=== PATIENT | male | born 1955 | race Caucasian/White ===

== ENCOUNTER 2017-05-26 14:17 | Emergency (ER) | payer OTHER ==
[~2017-05-26] VITALS: Ht 185.4 cm; Wt 88.9 kg
[~2017-05-26 14:17] MED LIST: AMLO10TA4 PO; ATOR10TA PO; HYDR12.58 PO
[2017-05-26 15:01] VITALS: BP 124/71
--- NOTE | 2017-05-26 15:33 | RAD ---
PA and lateral chest radiographs 05/26/2017 Clinical history: Increased rib pain. PA and lateral digital radiographs of the chest were obtained. No previous studies are available for comparison. The cardiac and mediastinal silhouettes are within normal limits in size and configuration. No acute pulmonary infiltrate is seen. No pleural effusion or pneumothorax is noted. Relatively acute-appearing fractures of the right fifth and sixth ribs are seen, laterally. These are not significantly displaced. Degenerative changes are seen involving the thoracic spine. Impression: Relatively acute appearing fractures are seen involving the right fifth and sixth ribs. No additional acute abnormality is seen.
--- NOTE | 2017-05-26 15:35 | PHYS DOC ---
Past Medical History Past Medical History: High Cholesterol, Hypertension Past Surgical History: Cancer Surgery, Other Additional Past Surgical Histo: PARTIAL R NEPHRECTOMY, ESOPHAGUS DILATION Alcohol Use: None Drug Use: None Adult General Chief Complaint Chief Complaint: RIB PAIN HPI HPI Patient is a 61 year old male with history of hypertension high cholesterol who presents today with 7 out of 10 sharp right rib pain that has been going on intermittently for 4 weeks and got worse yesterday. Patient states he has rib fractures. He states he saw his PCP who hasn't on Aleve and cyclobenzaprine. Patient states this medications are not helping. Patient denies any new injuries. Denies any shortness of breath. Review of Systems Review of Systems Constitutional: Denies fever or chills [] Eyes: Denies change in visual acuity, redness, or eye pain [] HENT: Denies nasal congestion or sore throat [] Respiratory: right rib pain Cardiovascular: No additional information not addressed in HPI [] GI: Denies abdominal pain, nausea, vomiting, bloody stools or diarrhea [] : Denies dysuria or hematuria [] Musculoskeletal: Denies back pain or joint pain [] Integument: Denies rash or skin lesions [] Neurologic: Denies headache, focal weakness or sensory changes [] Allergies Allergies Allergies Coded Allergies Type Severity Reaction Last Updated Verified No Known Drug Allergies 06/12/16 No Physical Exam Physical Exam Constitutional: Well developed, well nourished, no acute distress, non-toxic appearance. [] HENT: Normocephalic, atraumatic, bilateral external ears normal, oropharynx moist, no oral exudates, nose normal. [] Eyes: PERRLA, EOMI, conjunctiva normal, no discharge. [] Neck: Normal range of motion, no tenderness, supple, no stridor. [] Cardiovascular:Heart rate regular rhythm, no murmur [] Lungs & Thorax: Bilateral breath sounds clear to auscultation, tenderness on palpation of ribs 9 and 10 mid axillary line on the right side. Abdomen: Bowel sounds normal, soft, no tenderness, no masses, no pulsatile masses. [] Skin: Warm, dry, no erythema, no rash. [] Back: No tenderness, no CVA tenderness. [] Extremities: No tenderness, no cyanosis, no clubbing, ROM intact, no edema. [] Neurologic: Alert and oriented X 3, normal motor function, normal sensory function, no focal deficits noted. [] Psychologic: Affect normal, judgement normal, mood normal. [] Current Patient Data Vital Signs Vital Signs Date Time Temp Pulse Resp B/P (MAP) Pulse Ox O2 Delivery O2 Flow Rate FiO2 05/26/17 15:01 98.7 89 16 97 Room Air 98.7 EKG EKG [] Radiology/Procedures Radiology/Procedures [] Course & Med Decision Making Course & Med Decision Making Pertinent Labs and Imaging studies reviewed. (See chart for details) Patient is in the ED with right rib pain. He has at present diagnoses of right rib fracture 4 weeks ago. Is on Aleve and cyclobenzaprine with no relief. Is requesting for some pain relief. He states will follow-up with his own doctor in the next 1-2 weeks. Is also requesting a note for work for light duty. was provided. Discharged with pain medicines and instructed follow up with this doctor as soon as he can. Dragon Disclaimer Dragon Disclaimer This electronic medical record was generated, in whole or in part, using a voice recognition dictation system. Departure Departure Impression: Primary Impression: Rib pain on right side Disposition: HOME, SELF-CARE Condition: STABLE Referrals: TERE BETANCOURT MD (PCP) Follow-up with your doctor in the next 7 days Patient Instructions: Musculoskeletal Pain Additional Instructions: You were seen for ongoing right rib pain from rib fractures insistent 4 weeks ago. We highly recommend you follow-up with your doctor in the next 1-[address] operate machinery on the medications we sent you home with today. You can apply ice to the affected area. Return to the ED if symptoms worsen. Scripts Diazepam (VALIUM) 10 Mg Tablet 10 MG PO TID, #20 TAB Prov: ROBERT KUHN APRN 05/26/17 Hydrocodone/Apap 5-325 (NORCO 5-325 TABLET) 1 Each Tablet 1-2 TAB PO Q4-6HRS, #20 TAB Prov: ROBERT KUHN APRN 05/26/17 ROBERT KUHN APRN May 26, 2017 15:35
[2017-05-26] MEDS ORDERED: HYDR-971 PO (15:45)
[2017-05-26] MEDS ORDERED: VALIUM10 MG PO (15:45)
== END 2017-05-26 16:02 | disposition home or self-care (01) ==
LOC: ER 14:17
DX: R07.81 Pleurodynia (principal); I10 Essential (primary) hypertension; E78.00 Pure hypercholesterolemia, unspecified
CPT/HCPCS: 71020; 99284-25

== ENCOUNTER → 2020-05-18 | Outpatient (CLI) | payer MEDICARE, OTHER ==
[2017-09-08 11:00] VITALS: BP 115/71
[~2020-05-18] MED LIST changes: +ACYC800T PO; +AMLO1CAP13 PO; +ASPI325T8 PO; +DEXA4TAB PO; +FLUC100T4 PO; +HYDR-3164 PO; +IBUP-1007 PO; +PROC5TAB14 PO; +VALA10005 PO; +VALIUM10 MG PO
--- NOTE | 2020-05-18 15:11 | KCIC ---
EXAM: 3 views left knee DATE: 05/18/2020 12:00 AM INDICATION: Reason: LT ANTERIOR KNEE PAIN APPRX 1 MONTH, NO INJURY / Spl. Instructions: / History: COMPARISON: No Prior FINDINGS: Chondrocalcinosis. Joint spaces are preserved without significant degenerative/proliferative change. No evidence of acute fracture or dislocation. No joint effusion. IMPRESSION: 1. Chondrocalcinosis without significant degenerative/atrophic change. Electronically signed by: Praful Meza MD (05/18/2020 3:08 PM) CHRISTINE
== END | disposition home or self-care (01) ==
LOC: KCIC 12:42
PROVIDERS: ATTEND Family Medicine
DX: M11.262 Other chondrocalcinosis, left knee (principal)
CPT/HCPCS: 73562

== ENCOUNTER → 2020-10-26 | Outpatient (CLI) | payer MEDICARE, OTHER ==
[2017-09-08 11:00] VITALS: BP 115/71
--- NOTE | 2020-10-26 12:53 | RAD ---
EXAMINATION: CT HEAD/BRAIN WO (CT HEAD WITHOUT IV CONTRAST) CLINICAL HISTORY: HEADACHE TECHNIQUE: Serial axial images without IV contrast were obtained from the vertex to the foramen magnu m. CT Dose Reduction Employed: One or more of the following individualized dose reduction techniques wer e utilized for this examination: 1. Automated exposure control 2. Adjustment of the mA and/or kV ac cording to patient size 3. Use of iterative reconstruction technique. COMPARISON: None FINDINGS: Acute Change: No evidence of an acute infarct or other acute parenchymal process. Hemorrhage: No evidence of acute intracranial hemorrhage. Mass Lesion/Mass Effect: No evidence of intracranial mass or extraaxial fluid collection. No signific ant mass effect. Chronic Change: None apparent. Atherosclerotic calcification of the bilateral carotid siphons. Parenchyma: No significant volume loss. Parenchyma otherwise within normal limits for age. Ventricles: Ventricles within normal limits for age. Paranasal Sinuses and Skull Base: Mild mucoperiosteal thickening in the right maxillary sinus. Visual ized skull base and soft tissues unremarkable. IMPRESSION: No evidence of acute intracranial abnormality. Electronically signed by: Gerald Martin DO (10/26/2020 12:51 PM) [id number]
== END ==
LOC: CT 10:07
PROVIDERS: ATTEND Family Medicine
DX: R51.9 Headache, unspecified (principal)
CPT/HCPCS: 70450

== ENCOUNTER 2021-01-10 15:10 | Observation (INO) | payer MEDICARE, OTHER ==
[~2021-01-10] VITALS: Ht 185.4 cm; Wt 61.4 kg
[~2021-01-10 15:10] MED LIST changes: -ACYC800T PO; +ACYC800T88 PO
[2021-01-10 16:38] LABS: BASO # 0.1 x10^3/uL (0.0-0.2); BASO % 1 % (0-3); EOS # 0.3 x10^3/uL (0.0-0.7); EOS % 6 % (0-3); HEMATOCRIT 42.9 % (39.0-53.0); HEMOGLOBIN 14.5 g/dL (13.0-17.5); LYMPH # 0.4 x10^3/uL (1.0-4.8); LYMPH % 9 % (24-48); MEAN CORPUSCULAR HEMOGLOBIN 33 pg (25-35); MEAN CORPUSCULAR HGB CONC 34 g/dL (31-37); MEAN CORPUSCULAR VOLUME 98 fL (79-100); MONO # 0.6 x10^3/uL (0.0-1.1); MONO % 13 % (0-9); NEUT # 3.2 x10^3/uL (1.8-7.7); NEUT % 71 % (31-73); PLATELET COUNT 161 x10^3/uL (140-400); RED BLOOD COUNT 4.39 x10^6/uL (4.30-5.70); RED CELL DISTRIBUTION WIDTH 15.1 % (11.5-14.5); WHITE BLOOD COUNT 4.5 x10^3/uL (4.0-11.0)
[2021-01-10 16:45] LABS: CALCIUM 8.8 mg/dL (8.5-10.1); CREATININE 1.3 mg/dL (0.7-1.3)
[2021-01-10 16:46] LABS: GFR 55.1; POTASSIUM 3.8 mmol/L (3.5-5.1)
[2021-01-10 16:51] LABS: ALBUMIN 3.5 g/dL (3.4-5.0); ALBUMIN/GLOBULIN RATIO 1.2 (1.0-1.7); TOTAL BILIRUBIN 0.7 mg/dL (0.2-1.0); TOTAL PROTEIN 6.5 g/dL (6.4-8.2)
--- NOTE | 2021-01-10 17:32 | RAD ---
ACUTE ABDOMEN SERIES History: Upper abdominal pain, now resolved. Comparison: AP chest May 26, 2017. CT abdomen and pelvis with contrast September 08, 2017. Findings: Frontal chest and supine and upright views of the abdomen. Cardiomediastinal silhouette is normal. There is no pleural effusion or pneumothorax. Minimal atelec tasis or scarring left costophrenic angle. The lungs are otherwise clear. No pneumoperitoneum is identified. No dilated air-filled loops of bowel are seen. There is scattered air and stool in the colon. Bowel gas pattern is nonobstructive. There is a 2.8 cm oval hyperdensity containing a bubble of air in the right upper abdomen, nonspecifi c. Degenerative endplate spurring of the lumbar spine. IMPRESSION: 1. No acute cardiopulmonary process. 2. Nonobstructive bowel gas pattern. Electronically signed by: Domenic Renee MD (01/10/2021 5:29 PM) [facility]
--- NOTE | 2021-01-10 18:12 | PDOC1 ---
History and Physical Date of Admission Date of Admission DATE: 01/10/21 TIME: 18:07 Identification/Chief Complaint Chief Complaint Epigastric abdominal pain Source Source: Patient History of Present Illness History of Present Illness Mr Weeks is a 65yo male [employer] with PMHx renal cell ca, multiple myeloma (s/p autologous stem cell transplant 06/2017, on revlimid), peripheral neuropathy who presents to the ED complaining of epigastric abdominal pain and chest pain. He had pickles cheese as well as 2 burritos for lunch and experienced intense epigastric abdominal pain that radiated up into his chest and doubled him over, he also had associated shortness of breath. He waited 30 minutes when it did finally subside. He drove himself to the emergency department for further evaluation. Acute abdomen series with no obstruction normal bowel gas pattern. Previously he is experienced similar symptoms and had food impaction diagnosed and treated in 2013 with an EGD and at the time he also has esophageal dilation. The time he was seen at [facility]. Historically he has renal cell cancer diagnosed in 2003 and treated with partial nephrectomy at [facility]. He was diagnosed in 2016 with multiple myeloma and was treated with autologous stem cell transplant by Dr. Priest and has been maintained on Revlimid. Plans on scheduling a colonoscopy as he is due for 5-year follow-up this year has appointment 02/16/2021. He also plans to travel to [place] for a motorcycle rally next month. Otherwise no recent travel or sick contacts. Up-to-date on vaccinations including COVID-19. EKG with sinus rhythm multiple PVCs and some left axis deviation. Normal ST segments and T waves. Labs WBC 4.5, Hb 14.5, platelets 161, NA 146, K3.8, BUN 17, CR 1.3, glucose 128, magnesium 2, AST 139, ALT 128 alk phos 115 lipase 126, troponin 0. Admitted for further observation Past Medical History Cardiovascular: No pertinent hx Pulmonary: No pertinent hx GI: Diverticulosis Heme/Onc: Other Hepatobiliary: No pertinent hx Renal/: Renal Ca. Past Surgical History Past Surgical History Vasectomy, hernia repair, right partial nephrectomy. Past Surgical History: Other Family History Family History: Cancer Social History Smoke: No ALCOHOL: rare Drugs: None, Other Current Medications Current Medications Active Scripts Active Derry 5-325 Tablet (Acetaminophen/Hydrocodone Bitart) 1 Each Tablet 1-2 Tab PO Q4-6HRS Reported Ibuprofen 600 Mg Tablet 600 Mg PO PRN Q6HRS PRN Fluconazole 100 Mg Tablet 100 Tab PO DAILY x 8 days Acyclovir 800 Mg Tablet 1 Tab PO BID Prochlorperazine Maleate 10 Mg Tablet 1 Tab PO Q6HRS PRN Amlodipine-Benazepril 10-20 Mg (Amlodipine Besylate/Benazepril) 1 Each Capsule 1 Cap PO DAILY Dexamethasone 4 Mg Tablet 4 Tab PO WEEKLY 10 4mg tablets once a week Lipitor (Atorvastatin Calcium) 10 Mg Tablet 10 Mg PO DAILY Hydrochlorothiazide Tablet (Hydrochlorothiazide) 12.5 Mg Tablet 1 Tab PO DAILY Norvasc (Amlodipine Besylate) 10 Mg Tablet 10 Mg PO DAILY Allergies Allergies: Coded Allergies: No Known Drug Allergies (Unverified , 06/12/16) ROS General: No: Chills, Night Sweats, Fatigue, Malaise, Appetite, Other PSYCHOLOGICAL ROS: No: Anxiety, Behavioral Disorder, Concentration difficultie, Decreased libido, Depression, Disorientation, Hallucinations, Hostility, Irritablity, Memory difficulties, Mood Swings, Obsessive thoughts, Physical abuse, Sexual abuse, Sleep disturbances, Suicidal ideation, Other Eyes: No Blurry vision, No Decreased vision, No Double vision, No Dry eyes, No Excessive tearing, No Eye Pain, No Itchy Eyes, No Loss of vision, No Photophobia, No Scotomata, No Uses contacts, No Uses glasses, No Other HEENT: No: Heacaches, Visual Changes, Hearing change, Nasal congestion, Nasal discharge, Oral lesions, Sinus pain, Sore Throat, Epistaxis, Sneezing, Snoring, Tinnitus, Vertigo, Vocal changes, Other ALLERGY AND IMMUNOLOGY: No: Hives, Insect Bite Sensitivity, Itchy/Watery Eyes, Nasal Congestion, Post Nasal Drip, Seasonal Allergies, Other Hematological and Lymphatic: No: Bleeding Problems, Blood Clots, Blood Transfusions, Brusing, Night Sweats, Pallor, Swollen Lymph Nodes, Other ENDOCRINE: No: Breast Changes, Galactorrhea, Hair Pattern Changes, Hot Flashes, Malaise/lethargy, Mood Swings, Palpitations, Polydipsia/polyuria, Skin Changes, Temperature Intolerance, Unexpected Weight Changes, Other Physical Exam General: Alert, Oriented X3, Cooperative, No acute distress HEENT: Atraumatic, PERRLA, EOMI, Mucous membr. moist/pink Lungs: Clear to auscultation, Normal air movement Heart: S1S2, RRR, no thrills, no rubs, no gallops, no murmurs Abdomen: Normal bowel sounds, Soft, No tenderness, No hepatosplenomegaly, No masses Rectal Exam: not examined Extremities: No clubbing, No cyanosis, No edema, Normal pulses, No tenderness/swelling Skin: No rashes, No breakdown, No significant lesion Neuro: Normal gait, Normal speech, Strength at 5/5 X4 ext, Normal tone, Sensation intact, Cranial nerves 3-12 NL, Reflexes 2+ Psych/Mental Status: Mental status NL, Mood NL Vitals Vitals Vital Signs Date Time Temp Pulse Resp B/P (MAP) Pulse Ox O2 Delivery O2 Flow Rate FiO2 01/10/21 15:24 98.0 79 16 147/83 (104) 97 Room Air 98.0 Labs Labs Laboratory Tests Test 01/10/21 16:05 White Blood Count 4.5 x10^3/uL (4.0-11.0) Red Blood Count 4.39 x10^6/uL (4.30-5.70) Hemoglobin 14.5 g/dL (13.0-17.5) Hematocrit 42.9 % (39.0-53.0) Mean Corpuscular Volume 98 fL (79-100) Mean Corpuscular Hemoglobin 33 pg (25-35) Mean Corpuscular Hemoglobin Concent 34 g/dL (31-37) Red Cell Distribution Width 15.1 % (11.5-14.5) Platelet Count 161 x10^3/uL (140-400) Neutrophils (%) (Auto) 71 % (31-73) Lymphocytes (%) (Auto) 9 % (24-48) Monocytes (%) (Auto) 13 % (0-9) Eosinophils (%) (Auto) 6 % (0-3) Basophils (%) (Auto) 1 % (0-3) Neutrophils # (Auto) 3.2 x10^3/uL (1.8-7.7) Lymphocytes # (Auto) 0.4 x10^3/uL (1.0-4.8) Monocytes # (Auto) 0.6 x10^3/uL (0.0-1.1) Eosinophils # (Auto) 0.3 x10^3/uL (0.0-0.7) Basophils # (Auto) 0.1 x10^3/uL (0.0-0.2) Sodium Level 146 mmol/L (136-145) Potassium Level 3.8 mmol/L (3.5-5.1) Chloride Level 109 mmol/L (98-107) Carbon Dioxide Level 25 mmol/L (21-32) Anion Gap 12 (6-14) Blood Urea Nitrogen 17 mg/dL (8-26) Creatinine 1.3 mg/dL (0.7-1.3) Estimated GFR (Cockcroft-Gault) 55.1 BUN/Creatinine Ratio 13 (6-20) Glucose Level 128 mg/dL (70-99) Calcium Level 8.8 mg/dL (8.5-10.1) Magnesium Level 2.0 mg/dL (1.8-2.4) Total Bilirubin 0.7 mg/dL (0.2-1.0) Aspartate Amino Transf (AST/SGOT) 139 U/L (15-37) Alanine Aminotransferase (ALT/SGPT) 128 U/L (16-63) Alkaline Phosphatase 115 U/L (46-116) Creatine Kinase 86 U/L (39-308) Creatine Kinase MB (Mass) 1.5 ng/mL (0.0-3.6) Creatine Kinase MB Relative Index 1.7 % (0-4) Troponin I Quantitative < 0.017 ng/mL (0.000-0.055) Total Protein 6.5 g/dL (6.4-8.2) Albumin 3.5 g/dL (3.4-5.0) Albumin/Globulin Ratio 1.2 (1.0-1.7) Lipase 126 U/L (73-393) Laboratory Tests Test 01/10/21 16:05 White Blood Count 4.5 x10^3/uL (4.0-11.0) Red Blood Count 4.39 x10^6/uL (4.30-5.70) Hemoglobin 14.5 g/dL (13.0-17.5) Hematocrit 42.9 % (39.0-53.0) Mean Corpuscular Volume 98 fL (79-100) Mean Corpuscular Hemoglobin 33 pg (25-35) Mean Corpuscular Hemoglobin Concent 34 g/dL (31-37) Red Cell Distribution Width 15.1 % (11.5-14.5) Platelet Count 161 x10^3/uL (140-400) Neutrophils (%) (Auto) 71 % (31-73) Lymphocytes (%) (Auto) 9 % (24-48) Monocytes (%) (Auto) 13 % (0-9) Eosinophils (%) (Auto) 6 % (0-3) Basophils (%) (Auto) 1 % (0-3) Neutrophils # (Auto) 3.2 x10^3/uL (1.8-7.7) Lymphocytes # (Auto) 0.4 x10^3/uL (1.0-4.8) Monocytes # (Auto) 0.6 x10^3/uL (0.0-1.1) Eosinophils # (Auto) 0.3 x10^3/uL (0.0-0.7) Basophils # (Auto) 0.1 x10^3/uL (0.0-0.2) Sodium Level 146 mmol/L (136-145) Potassium Level 3.8 mmol/L (3.5-5.1) Chloride Level 109 mmol/L (98-107) Carbon Dioxide Level 25 mmol/L (21-32) Anion Gap 12 (6-14) Blood Urea Nitrogen 17 mg/dL (8-26) Creatinine 1.3 mg/dL (0.7-1.3) Estimated GFR (Cockcroft-Gault) 55.1 BUN/Creatinine Ratio 13 (6-20) Glucose Level 128 mg/dL (70-99) Calcium Level 8.8 mg/dL (8.5-10.1) Magnesium Level 2.0 mg/dL (1.8-2.4) Total Bilirubin 0.7 mg/dL (0.2-1.0) Aspartate Amino Transf (AST/SGOT) 139 U/L (15-37) Alanine Aminotransferase (ALT/SGPT) 128 U/L (16-63) Alkaline Phosphatase 115 U/L (46-116) Creatine Kinase 86 U/L (39-308) Creatine Kinase MB (Mass) 1.5 ng/mL (0.0-3.6) Creatine Kinase MB Relative Index 1.7 % (0-4) Troponin I Quantitative < 0.017 ng/mL (0.000-0.055) Total Protein 6.5 g/dL (6.4-8.2) Albumin 3.5 g/dL (3.4-5.0) Albumin/Globulin Ratio 1.2 (1.0-1.7) Lipase 126 U/L (73-393) Images Images Acute abdomen radiograph series: Cardiomediastinal silhouette is normal. There is no pleural effusion or pneumothorax. Minimal atelectasis or scarring left costophrenic angle. The lungs are otherwise clear. No pneumoperitoneum is identified. No dilated air-filled loops of bowel are seen. There is scattered air and stool in the colon. Bowel gas pattern is nonobstructive. There is a 2.8 cm oval hyperdensity containing a bubble of air in the right upper abdomen, nonspecific. Degenerative endplate spurring of the lumbar spine. IMPRESSION: 1. No acute cardiopulmonary process. 2. Nonobstructive bowel gas pattern. VTE Prophylaxis Ordered VTE Prophylaxis Devices: Yes VTE Pharmacological Prophylaxi: Yes Assessment/Plan Assessment/Plan A/P: Chest pain - atypical, likely epigastric pain from esophageal spasm Transaminitis - likely due to revlimid therapy. Will monitor. Has excellent outpatient hematology/oncology f/u Epigastric pain - likely esophageal spasm vs stricture vs PUD. PPI, prn zofran Multiple myeloma - s/p autologous BMT, on revlimid, stable H/o renal cell ca - s/p partial right nephrectomy, in remission HTN - on amlodipine at home, BP is elevated currently, prn hydralazine ordered Abnormal EKG - multiple PVCs. previously noted. Not on BB or non-dihydropyridine BB. Will consult cardiology for further recs. No cardiac history ERIC - likely vasomotor nephropathy due to poor PO intake given above. Will hydrate, monitor renal function FEN - Cardiac diet, npo after midnight PPX -lovenox FULL CODE Dispo - observation for above Justifications for Admission Other Justification JUSTEN FELICIANO MD January 10, 2021 18:12
[2021-01-10] MEDS ORDERED: PANTOPRAZOLE 40 MG TABLET.DR. PO ONE (18:15)
[2021-01-10] MEDS ORDERED: ONDANSETRON PF 4 MG/2 ML VIAL. IVP PRN (18:15)
[2021-01-10] MEDS ORDERED: NITROGLYCERIN SUBLINGUAL 0.4 MG BOTTLE OF 25. SL PRN (18:45)
[2021-01-10] MEDS ORDERED: ACETAMINOPHEN 325 MG TABLET. PO PRN (18:45)
[2021-01-10] MEDS ORDERED: ZOLPIDEM 5 MG TABLET. PO PRN (18:45)
[2021-01-10] MEDS ORDERED: hydrALAZINE 20 MG/ML VIAL. IVP PRN (18:45)
[2021-01-10 20:57] LABS: BILIRUBIN,URINE NEGATIVE (NEG); CLARITY,URINE CLEAR; COLOR,URINE YELLOW; NITRITE,URINE NEGATIVE (NEG); PROTEIN,URINE NEGATIVE (NEG-TRACE); UROBILINOGEN,URINE 0.2 mg/dL (0.2 mg/dL)
[2021-01-10] MEDS ORDERED: ENOXAPARIN 40 MG/0.4 ML SYRINGE. SQ SCH (21:00)
[2021-01-10 21:04] LABS: BACTERIA,URINE 0 /HPF (0-FEW); RBC,URINE RARE /HPF (0-2); WBC,URINE RARE /HPF (0-4)
[2021-01-10] MEDS ORDERED: LENA5CAP PO (21:04)
[2021-01-10] MEDS ORDERED: DICL75TA PO (21:04)
[2021-01-10 21:09] VITALS: BP 178/91
[2021-01-10 22:27] VITALS: BP 170/90
--- NOTE | 2021-01-10 23:30 | ED.ADGEN ---
Past Medical History Past Medical History: High Cholesterol, Hypertension Additional Past Medical Histor: MULTIPLE MYELOMA, KIDNEY CA, peripheral neuropathy, metatarsalgia Past Surgical History: Cancer Surgery, Other Additional Past Surgical Histo: PARTIAL R NEPHRECTOMY, ESOPHAGUS DILATION Smoking Status: Never Smoker Alcohol Use: None Drug Use: None General Adult EDM: Chief Complaint: ABDOMINAL PAIN HPI: HPI: Patient is a pleasant 65 year old male who presents emergency department with complaints of a sudden onset of upper abdominal pain at approximately 1500 this afternoon. Patient states the pain was so severe that he took his breath away and caused him to double over. Patient states he was watching TV when the episode began. He had eaten lunch at noon. Patient states he ate burritos, pickles, and cheese. He reports concerned that maybe the burritos got stuck in his abdomen. Patient denies any flatulence or belching. He states that the pain lasted for short period of time and then went away. He denies any radiation of the pain to his back. Patient also denies any chest pain, palpitations, dizziness, nausea, vomiting, diarrhea, shortness of breath, wheezing, fever, headache, or syncope. He currently denies any pain. Patient states his last bowel movement was today and it was normal. Review of Systems: Review of Systems: Complete ROS is negative unless otherwise noted in HPI. Current Medications: Current Medications Medications (Trade) Dose Ordered Sig/Toña Start Time Stop Time Status Last Admin Dose Admin Ondansetron HCl (Zofran) 4 mg PRN Q4HRS PRN 01/10/21 18:15 Pantoprazole Sodium (Protonix) 40 mg 1X ONCE 01/10/21 18:15 01/10/21 18:18 DC 01/10/21 18:39 40 MG Allergies: Allergies: Allergies Coded Allergies Type Severity Reaction Last Updated Verified No Known Drug Allergies 06/12/16 No Physical Exam: PE: See Above Constitutional: Well developed, well nourished, no acute distress, non-toxic appearance. [] HENT: Normocephalic, atraumatic, bilateral external ears normal, nose normal. [] Eyes: PERRLA, EOMI, conjunctiva normal, no discharge. [] Neck: Normal range of motion, no stridor. [] Cardiovascular:Heart rate regular rhythm, no murmur Lungs & Thorax: Respirations even and unlabored, no retractions, no respiratory distress, lungs CTA Abdomen: soft, no tenderness no palpable mass, no pulsatile mass, no rebound tenderness, no guarding Skin: Warm, dry, no erythema, no rash. [] Extremities: No cyanosis, ROM intact, no edema. [] Neurologic: Alert and oriented X 3, normal motor, normal sensory, no focal deficits noted. [] Psychologic: Affect normal, judgement normal, mood normal. [] Current Patient Data: Labs: Laboratory Tests Test 01/10/21 16:05 White Blood Count 4.5 x10^3/uL (4.0-11.0) Red Blood Count 4.39 x10^6/uL (4.30-5.70) Hemoglobin 14.5 g/dL (13.0-17.5) Hematocrit 42.9 % (39.0-53.0) Mean Corpuscular Volume 98 fL (79-100) Mean Corpuscular Hemoglobin 33 pg (25-35) Mean Corpuscular Hemoglobin Concent 34 g/dL (31-37) Red Cell Distribution Width 15.1 % (11.5-14.5) H Platelet Count 161 x10^3/uL (140-400) Neutrophils (%) (Auto) 71 % (31-73) Lymphocytes (%) (Auto) 9 % (24-48) L Monocytes (%) (Auto) 13 % (0-9) H Eosinophils (%) (Auto) 6 % (0-3) H Basophils (%) (Auto) 1 % (0-3) Neutrophils # (Auto) 3.2 x10^3/uL (1.8-7.7) Lymphocytes # (Auto) 0.4 x10^3/uL (1.0-4.8) L Monocytes # (Auto) 0.6 x10^3/uL (0.0-1.1) Eosinophils # (Auto) 0.3 x10^3/uL (0.0-0.7) Basophils # (Auto) 0.1 x10^3/uL (0.0-0.2) Sodium Level 146 mmol/L (136-145) H Potassium Level 3.8 mmol/L (3.5-5.1) Chloride Level 109 mmol/L (98-107) H Carbon Dioxide Level 25 mmol/L (21-32) Anion Gap 12 (6-14) Blood Urea Nitrogen 17 mg/dL (8-26) Creatinine 1.3 mg/dL (0.7-1.3) Estimated GFR (Cockcroft-Gault) 55.1 BUN/Creatinine Ratio 13 (6-20) Glucose Level 128 mg/dL (70-99) H Calcium Level 8.8 mg/dL (8.5-10.1) Magnesium Level 2.0 mg/dL (1.8-2.4) Total Bilirubin 0.7 mg/dL (0.2-1.0) Aspartate Amino Transferase (AST) 139 U/L (15-37) H Alanine Aminotransferase (ALT) 128 U/L (16-63) H Alkaline Phosphatase 115 U/L (46-116) Creatine Kinase 86 U/L (39-308) Creatine Kinase MB (Mass) 1.5 ng/mL (0.0-3.6) Creatine Kinase MB Relative Index 1.7 % (0-4) Troponin I Quantitative < 0.017 ng/mL (0.000-0.055) Total Protein 6.5 g/dL (6.4-8.2) Albumin 3.5 g/dL (3.4-5.0) Albumin/Globulin Ratio 1.2 (1.0-1.7) Lipase 126 U/L (73-393) Laboratory Tests 01/10/21 16:05 Laboratory Tests 01/10/21 16:05 Vital Signs: Vital Signs Date Time Temp Pulse Resp B/P (MAP) Pulse Ox O2 Delivery O2 Flow Rate FiO2 01/10/21 18:23 64 17 173/90 (117) 95 Room Air 01/10/21 15:24 98.0 98.0 EKG: EK-sinus rhythm with PVCs and leftward axis, rate 70, no STEMI, read by Dr. Lewis [] Heart Score: C/O Chest Pain: No Risk Factors: Risk Factors: DM, Current or recent (<one month) smoker, HTN, HLP, family history of CAD, obesity. Risk Scores: Score 0 - 3: 2.5% MACE over next 6 weeks - Discharge Home Score 4 - 6: 20.3% MACE over next 6 weeks - Admit for Clinical Observation Score 7 - 10: 72.7% MACE over next 6 weeks - Early Invasive Strategies Radiology/Procedures: Radiology/Procedures: PROCEDURE: ACUTE ABDOMEN SERIES ACUTE ABDOMEN SERIES History: Upper abdominal pain, now resolved. Comparison: AP chest May 26, 2017. CT abdomen and pelvis with contrast September 08, 2017. Findings: Frontal chest and supine and upright views of the abdomen. Cardiomediastinal silhouette is normal. There is no pleural effusion or pneumothorax. Minimal atelectasis or scarring left costophrenic angle. The lungs are otherwise clear. No pneumoperitoneum is identified. No dilated air-filled loops of bowel are seen. There is scattered air and stool in the colon. Bowel gas pattern is nonobstructive. There is a 2.8 cm oval hyperdensity containing a bubble of air in the right upper abdomen, nonspecific. Degenerative endplate spurring of the lumbar spine. IMPRESSION: 1. No acute cardiopulmonary process. 2. Nonobstructive bowel gas pattern. Electronically signed by: Domenic Renee MD (01/10/2021 5:29 PM) [facility][] Course & Med Decision Making: Course & Med Decision Making Pertinent Labs and Imaging studies reviewed. (See chart for details) 1645-spoke with Dr. Silva who is the admitting physician, and care was assumed following discussion of patient. Will admit patient for epigastric pain and abnormal EKG as an observation status, will initiate chest pain protocols Patient's vital signs stable. Patient remains afebrile, appears nontoxic, respirations even and unlabored. Patient will be admitted to the CVC floor. Patient's case and plan of care also discussed with Dr. Lewis [] Brittney Disclaimer: Brittney Disclaimer: This electronic medical record was generated, in whole or in part, using a voice recognition dictation system. Departure Departure Impression: Primary Impression: Abnormal EKG Additional Impression: Epigastric pain Disposition: ADMITTED INPATIENT Admitting Physician: RAQUEL (Shira) Condition: STABLE Problem Qualifiers DALIA HARO CHAPLAIN RESIDENT January 10, 2021 23:30
[2021-01-11 02:55] VITALS: BP 146/76
[2021-01-11 03:25] LABS: ALBUMIN 3.7 g/dL (3.4-5.0); ALBUMIN/GLOBULIN RATIO 1.4 (1.0-1.7); CALCIUM 8.8 mg/dL (8.5-10.1); CREATININE 1.1 mg/dL (0.7-1.3); GFR 66.8; POTASSIUM 3.5 mmol/L (3.5-5.1); TOTAL BILIRUBIN 1.3 mg/dL (0.2-1.0); TOTAL PROTEIN 6.3 g/dL (6.4-8.2)
[2021-01-11 07:00] VITALS: BP 163/92
[2021-01-11] MEDS ORDERED: ASPIRIN 325 MG TABLET PO SCH (08:00)
--- NOTE | 2021-01-11 08:40 | EKG ---
[facility] [address] [place] [address] Test Date: 2021-01-10 Test Time: 16:53:32 Pat Name: AVILA HENNESSY Department: Room: Gender: Prevention Specialist: : 1955 Requested By: DALIA HARO Order Number: [id number] Reading MD: Measurements Intervals [place] Rate: 70 P: 41 NE: 184 QRS: -23 QRSD: 100 T: 56 QT: 404 QTc: 439 Interpretive Statements SINUS RHYTHM COMPLEX(ES) WITH ABERRANT INTRAVENTRICULAR CONDUCTION VENTRICULAR PREMATURE COMPLEX(ES) LEFTWARD AXIS ABNORMAL ECG RI6.01 No previous ECG available for comparison
[2021-01-11] MEDS ORDERED: amLODIPine BESYLATE 10 MG TABLET PO SCH (09:00)
[2021-01-11] MEDS ORDERED: ATORVASTATIN CALCIUM 10 MG TABLET. PO SCH (09:00)
--- NOTE | 2021-01-11 09:15 | PDOC2 ---
GI CONSULT Date of Service: DATE: 01/11/21 TIME: 09:15 Reason For Consult: epigastric pain h/o esophageal dilation HPI: HPI: 65 y/o who ate a pickle, some cheese, and two burritos yesterday at noon. Developed severe tight epigastric and BUQ pain (no radiation to back or chest) around 3:00 p.m. - resolved by the time he arrived at ER at 3:15. No similar symptoms in the past. Rare reflux - takes Tums occasionally before bed. No dysphagia, n/v, diarrhea, constipation, hematochezia, melena, change in appetite, or weight loss. Food bolus in [place] while on vacation in 2015 - had EGD w/ disimpaction there. Follow-up EGD in 06/[address] Burleson for dysphagia showed mild Schatzki's ring (dilated to 54Fr), normal stomach, and normal duodenum. Reports normal colonoscopies in the past at [facility] - says he's due for screening this summer. Admitted here w/ diverticulitis/abscess in 2018 - followed by surgery - he has no recollection of this. No GB, pancreas, or PUD history. H/o MM s/p stem cell transplant on Revlimid x 2 years - reports h/o mildly elevated LFTs with this (and low WBC). Takes an occasional Aleve for LE pain. He wants to be discharged today. PMH: PMH: RCC, MM, diverticulitis, neuropathy, HTN, HLD partial right nephrectomy, stem cell transplant, RIH repair, vasectomy FH: Family History: No pertinent hx (no GB disease), Cancer (pancreatic - father) Social History: Smoke: No ALCOHOL: rare Drugs: None ROS: GEN: Denies fevers, chills, sweats HEENT: Denies blurred vision, sore throat CV: Denies chest pain RESP: Denies shortness of air, cough GI: Per HPI : Denies hematuria, dysuria ENDO: Denies weight changes NEURO: Denies confusion, dizziness MSK: Denies weakness, joint pain/swelling SKIN: Denies jaundice, pruritus Vitals: Vitals: Vital Signs Date Time Temp Pulse Resp B/P (MAP) Pulse Ox O2 Delivery O2 Flow Rate FiO2 01/11/21 07:00 97.7 53 18 163/92 (115) 96 Room Air 97.7 Labs: Labs: Laboratory Tests Test 01/10/21 16:05 01/10/21 20:50 01/10/21 23:00 01/11/21 03:05 White Blood Count 4.5 x10^3/uL (4.0-11.0) Red Blood Count 4.39 x10^6/uL (4.30-5.70) Hemoglobin 14.5 g/dL (13.0-17.5) Hematocrit 42.9 % (39.0-53.0) Mean Corpuscular Volume 98 fL (79-100) Mean Corpuscular Hemoglobin 33 pg (25-35) Mean Corpuscular Hemoglobin Concent 34 g/dL (31-37) Red Cell Distribution Width 15.1 % (11.5-14.5) Platelet Count 161 x10^3/uL (140-400) Neutrophils (%) (Auto) 71 % (31-73) Lymphocytes (%) (Auto) 9 % (24-48) Monocytes (%) (Auto) 13 % (0-9) Eosinophils (%) (Auto) 6 % (0-3) Basophils (%) (Auto) 1 % (0-3) Neutrophils # (Auto) 3.2 x10^3/uL (1.8-7.7) Lymphocytes # (Auto) 0.4 x10^3/uL (1.0-4.8) Monocytes # (Auto) 0.6 x10^3/uL (0.0-1.1) Eosinophils # (Auto) 0.3 x10^3/uL (0.0-0.7) Basophils # (Auto) 0.1 x10^3/uL (0.0-0.2) Sodium Level 146 mmol/L (136-145) 146 mmol/L (136-145) Potassium Level 3.8 mmol/L (3.5-5.1) 3.5 mmol/L (3.5-5.1) Chloride Level 109 mmol/L (98-107) 109 mmol/L (98-107) Carbon Dioxide Level 25 mmol/L (21-32) 25 mmol/L (21-32) Anion Gap 12 (6-14) 12 (6-14) Blood Urea Nitrogen 17 mg/dL (8-26) 14 mg/dL (8-26) Creatinine 1.3 mg/dL (0.7-1.3) 1.1 mg/dL (0.7-1.3) Estimated GFR (Cockcroft-Gault) 55.1 66.8 BUN/Creatinine Ratio 13 (6-20) 13 (6-20) Glucose Level 128 mg/dL (70-99) 84 mg/dL (70-99) Calcium Level 8.8 mg/dL (8.5-10.1) 8.8 mg/dL (8.5-10.1) Magnesium Level 2.0 mg/dL (1.8-2.4) Total Bilirubin 0.7 mg/dL (0.2-1.0) 1.3 mg/dL (0.2-1.0) Aspartate Amino Transf (AST/SGOT) 139 U/L (15-37) 410 U/L (15-37) Alanine Aminotransferase (ALT/SGPT) 128 U/L (16-63) 534 U/L (16-63) Alkaline Phosphatase 115 U/L (46-116) 139 U/L (46-116) Creatine Kinase 86 U/L (39-308) Creatine Kinase MB (Mass) 1.5 ng/mL (0.0-3.6) Creatine Kinase MB Relative Index 1.7 % (0-4) Troponin I Quantitative < 0.017 ng/mL (0.000-0.055) < 0.017 ng/mL (0.000-0.055) < 0.017 ng/mL (0.000-0.055) Total Protein 6.5 g/dL (6.4-8.2) 6.3 g/dL (6.4-8.2) Albumin 3.5 g/dL (3.4-5.0) 3.7 g/dL (3.4-5.0) Albumin/Globulin Ratio 1.2 (1.0-1.7) 1.4 (1.0-1.7) Lipase 126 U/L (73-393) Urine Collection Type Unknown Urine Color Yellow Urine Clarity Clear Urine pH 6.0 (<5.0-8.0) Urine Specific [place] 1.020 (1.000-1.030) Urine Protein Negative mg/dL (NEG-TRACE) Urine Glucose (UA) Negative mg/dL (NEG) Urine Ketones (Stick) Negative mg/dL (NEG) Urine Blood Negative (NEG) Urine Nitrite Negative (NEG) Urine Bilirubin Negative (NEG) Urine Urobilinogen Dipstick 0.2 mg/dL (0.2 mg/dL) Urine Leukocyte Esterase Negative (NEG) Urine RBC Rare /HPF (0-2) Urine WBC Rare /HPF (0-4) Urine Squamous Epithelial Cells Occ /LPF Urine Bacteria 0 /HPF (0-FEW) Urine Mucus Slight /LPF Test 01/11/21 08:05 Troponin I Quantitative < 0.017 ng/mL (0.000-0.055) Allergies: Coded Allergies: No Known Drug Allergies (Unverified , 06/12/16) Medications: Current Medications Medications (Trade) Dose Ordered Sig/Toña Route PRN Reason Start Time Stop Time Status Last Admin Dose Admin Pantoprazole Sodium (Protonix) 40 mg 1X ONCE PO 01/10/21 18:15 01/10/21 18:18 DC 01/10/21 18:39 Hydralazine HCl (Apresoline Inj) 10 mg PRN Q4HRS PRN IVP HTN 01/10/21 18:45 01/10/21 22:23 Imaging: Imaging: AAS IMPRESSION: 1. No acute cardiopulmonary process. 2. Nonobstructive bowel gas pattern. PE: GEN: NAD HEENT: Atraumatic, PERRL LUNGS: CTAB HEART: RRR ABD: NABS, S/ND/NT EXTREMITY: No edema SKIN: No rashes, no jaundice NEURO/PSYCH: A & O 3 A/P: A/P: Upper abd pain - resolved Rare reflux, h/o food bolus and Schatzki's ring/dilation Elevated LFTs - apparently some h/o this attributed to Revlimid - worse today CRC screen - reportedly due for screening this year, reports normal colonoscopies in the past H/o diverticulitis - admitted here in 2018 - he does not recall H/o RCC and MM -- Cardiology eval pending - abnormal EKG - noted PVCs during exam. Will check Hepatitis panel and US to r/o GB issue. If US unrevealing, okay to advance diet and consider DC per GI w/ outpt follow-up if symptoms recur (and also due to screening colonoscopy). Should monitor LFTs. Would add PPI empirically, particularly since h/o Schatzki's ring/dilation. He is anxious to discharge - has a vacation planned, has work to do at home. Update: Abd US FINDINGS: The liver length measures 17 cm. Mild increased echogenicity identified throughout the liver likely hepatic steatosis. The common bile duct measures 4 mm in transverse dimension. The pancreas, aorta, IVC are not well-visualized. The spleen measures 11.3 cm in length. The right kidney measures 8.8 x 2.6 x 4.0 cm, abnormal appearing right kidney probably prior surgical changes.Cystic structure measuring 2 cm identified in the right kidney likely a cyst. The left kidney measures 12.7 x 4.2 x 5.7 cm. There is cystic structure identified in the left kidney measuring 1.3 cm likely cyst. IMPRESSION: 1. Mild hepatic steatosis. 2. Abnormal-appearing right kidney probably prior surgical changes. However evaluation is limited on this ultrasound. Consider CT urogram if there is suspicion for renal pathology. 3. Bilateral renal cysts. No comment re: gallbladder... will ask for clarification re: this... CLIFF MOMIN January 11, 2021 09:15
--- NOTE | 2021-01-11 10:58 | RAD ---
Examination: Ultrasound abdomen complete HISTORY: History of abdominal pain, elevated liver function tests COMPARISON: None available FINDINGS: The liver length measures 17 cm. Mild increased echogenicity identified throughout the liver likely h epatic steatosis. The common bile duct measures 4 mm in transverse dimension. The pancreas, aorta, IV C are not well-visualized. The spleen measures 11.3 cm in length. The right kidney measures 8.8 x 2.6 x 4.0 cm, abnormal appearing right kidney probably prior surgical changes.Cystic structure measuring 2 cm identified in the right kidney likely a cyst. The left kidney measures 12.7 x 4.2 x 5.7 cm. The re is cystic structure identified in the left kidney measuring 1.3 cm likely cyst. IMPRESSION: 1. Mild hepatic steatosis. 2. Abnormal-appearing right kidney probably prior surgical changes. However evaluation is limited on this ultrasound. Consider CT urogram if there is suspicion for renal pathology. 3. Bilateral renal cysts. Electronically signed by: Benitez Queen MD (01/11/2021 10:55 AM) [id number]
[2021-01-11 11:00] VITALS: BP 180/91
--- NOTE | 2021-01-11 11:15 | PDOC2 ---
FARZANA BAILEY [employer]TERS[employer]ER [employer]LE 01/11/21 1115: CARDIAC CONSULT DATE OF CONSULT Date of Consult DATE: 01/11/21 TIME: 10:35 REASON FOR CONSULT Reason for Consult: Epigastric pain, abnormal EKG REFERRING PHYSICIAN Referring Physician: Skyla SOURCE Source: Chart review, Patient HISTORY OF PRESENT ILLNESS HISTORY OF PRESENT ILLNESS This is a pleasant 65 yo male admitted for complains of abdominal pain. He ate 2 Burritos at lunch then at 3 PM started having severe upper abdominal pain that lasted about 25 minutes. No diarrhea nausea or vomiting. No fever or chills. Consult is for abnormal EKG and he has been having frequent PVCs. He said he has had this since he was young and had slow heart rate. No hx of cardiovascular disease and no hx of HTN or DM. Denies any [place] or exertional chest pain. No falls injury or dizziness or passing out. Denies any palpitations. PAST MEDICAL HISTORY Cardiovascular: HTN, Hyperlipidemia CENTRAL NERVOUS SYSTEM: Periperal neuropathy GI: GERD, Other (esophageal stricture) Heme/Onc: Cancer (multiple myeloma, renal CA) Hepatobiliary: No pertinent hx Psych: No pertinent hx Musculoskeletal: low back pain, Osteoarthritis, Other (chronic foot pain) Rheumatologic: No pertinent hx Infectious disease: No pertinent hx ENT: No pertinent hx Renal/: Other (renal CA) Endocrine: No pertinent hx Dermatology: No pertinent hx PAST SURGICAL HISTORY Past Surgical History: Arthroscopy (bilatreal ulnar compartment release), Hernia Repair, Other (esophageal dilatation, right partial nephrectomy) FAMILY HISTORY Family History noncontributory to CV SOCIAL HISTORY Smoke: No ALCOHOL: rare Drugs: None Lives: Alone CURRENT MEDICATIONS CURRENT MEDICATIONS Current Medications Medications (Trade) Dose Ordered Sig/Toña Route PRN Reason Start Time Stop Time Status Last Admin Dose Admin Pantoprazole Sodium (Protonix) 40 mg 1X ONCE PO 01/10/21 18:15 01/10/21 18:18 DC 01/10/21 18:39 Hydralazine HCl (Apresoline Inj) 10 mg PRN Q4HRS PRN IVP HTN 01/10/21 18:45 01/10/21 22:23 ALLERGIES ALLERGIES: Coded Allergies: No Known Drug Allergies (Unverified , 06/12/16) ROS Review of System 14 point ROS evaluated with pertinent positives noted per HPI PHYSICAL EXAM General: Alert, Oriented X3, Cooperative, No acute distress HEENT: Atraumatic, Mucous membr. moist/pink Lungs: Clear to auscultation, Normal air movement Heart: Regular rate (SR/SB), Normal S1, Normal S2, No murmurs Abdomen: Soft, No tenderness Extremities: No cyanosis, No edema Skin: No breakdown, No significant lesion Neuro: Normal speech, Sensation intact Psych/Mental Status: Mental status NL, Mood NL MUSCULOSKELETAL: Osteoarthritic changes both hands VITALS/I&O VITALS/I&O: Vital Signs Date Time Temp Pulse Resp B/P (MAP) Pulse Ox O2 Delivery O2 Flow Rate FiO2 01/11/21 08:00 Room Air 01/11/21 07:00 97.7 53 18 163/92 (115) 96 97.7 I & O 01/10/21 01/10/21 01/11/21 15:00 23:00 07:00 Intake Total 300 ml 0 ml Output Total 400 ml Balance -100 ml 0 ml LABS Lab: Laboratory Tests Test 01/10/21 16:05 01/10/21 20:50 01/10/21 23:00 01/11/21 03:05 White Blood Count 4.5 x10^3/uL (4.0-11.0) Red Blood Count 4.39 x10^6/uL (4.30-5.70) Hemoglobin 14.5 g/dL (13.0-17.5) Hematocrit 42.9 % (39.0-53.0) Mean Corpuscular Volume 98 fL (79-100) Mean Corpuscular Hemoglobin 33 pg (25-35) Mean Corpuscular Hemoglobin Concent 34 g/dL (31-37) Red Cell Distribution Width 15.1 % (11.5-14.5) H Platelet Count 161 x10^3/uL (140-400) Neutrophils (%) (Auto) 71 % (31-73) Lymphocytes (%) (Auto) 9 % (24-48) L Monocytes (%) (Auto) 13 % (0-9) H Eosinophils (%) (Auto) 6 % (0-3) H Basophils (%) (Auto) 1 % (0-3) Neutrophils # (Auto) 3.2 x10^3/uL (1.8-7.7) Lymphocytes # (Auto) 0.4 x10^3/uL (1.0-4.8) L Monocytes # (Auto) 0.6 x10^3/uL (0.0-1.1) Eosinophils # (Auto) 0.3 x10^3/uL (0.0-0.7) Basophils # (Auto) 0.1 x10^3/uL (0.0-0.2) Sodium Level 146 mmol/L (136-145) H 146 mmol/L (136-145) H Potassium Level 3.8 mmol/L (3.5-5.1) 3.5 mmol/L (3.5-5.1) Chloride Level 109 mmol/L (98-107) H 109 mmol/L (98-107) H Carbon Dioxide Level 25 mmol/L (21-32) 25 mmol/L (21-32) Anion Gap 12 (6-14) 12 (6-14) Blood Urea Nitrogen 17 mg/dL (8-26) 14 mg/dL (8-26) Creatinine 1.3 mg/dL (0.7-1.3) 1.1 mg/dL (0.7-1.3) Estimated GFR (Cockcroft-Gault) 55.1 66.8 BUN/Creatinine Ratio 13 (6-20) 13 (6-20) Glucose Level 128 mg/dL (70-99) H 84 mg/dL (70-99) Calcium Level 8.8 mg/dL (8.5-10.1) 8.8 mg/dL (8.5-10.1) Magnesium Level 2.0 mg/dL (1.8-2.4) Total Bilirubin 0.7 mg/dL (0.2-1.0) 1.3 mg/dL (0.2-1.0) H Aspartate Amino Transferase (AST) 139 U/L (15-37) H 410 U/L (15-37) H Alanine Aminotransferase (ALT) 128 U/L (16-63) H 534 U/L (16-63) H Alkaline Phosphatase 115 U/L (46-116) 139 U/L (46-116) H Creatine Kinase 86 U/L (39-308) Creatine Kinase MB (Mass) 1.5 ng/mL (0.0-3.6) Creatine Kinase MB Relative Index 1.7 % (0-4) Troponin I Quantitative < 0.017 ng/mL (0.000-0.055) < 0.017 ng/mL (0.000-0.055) < 0.017 ng/mL (0.000-0.055) Total Protein 6.5 g/dL (6.4-8.2) 6.3 g/dL (6.4-8.2) L Albumin 3.5 g/dL (3.4-5.0) 3.7 g/dL (3.4-5.0) Albumin/Globulin Ratio 1.2 (1.0-1.7) 1.4 (1.0-1.7) Lipase 126 U/L (73-393) Urine Collection Type Unknown Urine Color Yellow Urine Clarity Clear Urine pH 6.0 (<5.0-8.0) Urine Specific [place] 1.020 (1.000-1.030) Urine Protein Negative mg/dL (NEG-TRACE) Urine Glucose (UA) Negative mg/dL (NEG) Urine Ketones (Stick) Negative mg/dL (NEG) Urine Blood Negative (NEG) Urine Nitrite Negative (NEG) Urine Bilirubin Negative (NEG) Urine Urobilinogen Dipstick 0.2 mg/dL (0.2 mg/dL) Urine Leukocyte Esterase Negative (NEG) Urine RBC Rare /HPF (0-2) Urine WBC Rare /HPF (0-4) Urine Squamous Epithelial Cells Occ /LPF Urine Bacteria 0 /HPF (0-FEW) Urine Mucus Slight /LPF Test 01/11/21 08:05 Troponin I Quantitative < 0.017 ng/mL (0.000-0.055) Laboratory Tests 01/10/21 16:05 Laboratory Tests 01/10/21 16:05 01/11/21 03:05 ASSESSMENT/PLAN ASSESSMENT/PLAN 1. Abdominal pain: appears resolved. GI following 2. Abnormal EKG: SR with LAFB with frequent unifocal PVCs asymptomatic 3. Hx of multiple myeloma and renal CA 4. Transaminitis with associated use of revlimid 5. Asymptomatic SB: no pauses lowest in the 40s 6. HTN; labile episodes 7. HLP: not on med. tried 2 statins in the past but had myopathy symptoms Recommendations 1. TSH FLP, TTE 2. Start on lisinopril. HBPM 3. MCOT to note PVC burden 4. Follow up in office MIRANDA MARQUEZ MD 01/11/21 1708: CARDIAC CONSULT ASSESSMENT/PLAN ASSESSMENT/PLAN The patient was seen and interviewed as well as examined at the bedside. The chart was reviewed. The case was discussed. Agree with the plan of care. FARZANA BAILEY APRN January 11, 2021 11:15 MIRANDA MARQUEZ MD January 11, 2021 17:08
[2021-01-11] MEDS ORDERED: LISINOPRIL 10 MG TABLET PO SCH (11:30)
[2021-01-11 11:34] LABS: CHOLESTEROL/HDL RATIO 3.1
[2021-01-11] MEDS ORDERED: PANTOPRAZOLE 40 MG TABLET.DR. PO SCH (13:00)
--- NOTE | 2021-01-11 13:24 | NUR ---
SS following for discharge planning. SS reviewed pt chart and discussed with pt RN. Pt is from home and is currently on room air. Cardiology and GI consulted. ECHO today. Discharge plan is to home when medically ready. SS will continue to follow for discharge planning.
[2021-01-11 15:00] VITALS: BP 134/88
--- NOTE | 2021-01-11 15:23 | PDOC ---
[employer] PROGRESS NOTE Date of Service DOS: DATE: 01/11/21 TIME: 15:19 Chief Complaint Chief Complaint A/P: Chest pain - atypical, likely epigastric pain from esophageal spasm Transaminitis - likely due to revlimid therapy. Will monitor. Has excellent outpatient hematology/oncology f/u Epigastric pain - likely esophageal spasm vs stricture vs PUD. PPI, prn zofran Multiple myeloma - s/p autologous BMT, on revlimid, stable H/o renal cell ca - s/p partial right nephrectomy, in remission HTN - on amlodipine at home, BP is elevated currently, prn hydralazine ordered Abnormal EKG - multiple PVCs. previously noted. Not on BB or non-dihydropyridine BB. Will consult cardiology for further recs. No cardiac history ERIC - likely vasomotor nephropathy due to poor PO intake given above. Will hydrate, monitor renal function History of Present Illness History of Present Illness Mr Weeks is a 65yo male [employer] with PMHx renal cell ca, multiple myeloma (s/p autologous stem cell transplant 06/2017, on revlimid), peripheral neuropathy who presents to the ED complaining of epigastric abdominal pain and chest pain. He had pickles cheese as well as 2 burritos for lunch and experienced intense epigastric abdominal pain that radiated up into his chest and doubled him over, he also had associated shortness of breath. He waited 30 minutes when it did finally subside. He drove himself to the emergency department for further evaluation. Acute abdomen series with no obstruction normal bowel gas pattern. Previously he is experienced similar symptoms and had food impaction diagnosed and treated in 2013 with an EGD and at the time he also has esophageal dilation. The time he was seen at [facility]. Historically he has renal cell cancer diagnosed in 2004 and treated with partial nephrectomy at [facility]. He was diagnosed in 2016 with multiple myeloma and was treated with autologous stem cell transplant by Dr. Priest and has been maintained on Revlimid. Plans on scheduling a colonoscopy as he is due for 5-year follow-up this year has appointment 02/16/2021. He also plans to travel to [place] for a motorcycle rally next month. Otherwise no recent travel or sick contacts. Up-to-date on vaccinations including COVID-19. EKG with sinus rhythm multiple PVCs and some left axis deviation. Normal ST segments and T waves. Labs WBC 4.5, Hb 14.5, platelets 161, NA 146, K3.8, BUN 17, CR 1.3, glucose 128, magnesium 2, AST 139, ALT 128 alk phos 115 lipase 126, troponin 0. Admitted for further observation 01/11/2021 Denies chest pain, denies fever, denies shortness of breath. Troponins negative x3. Blood pressure not within goal range of <150/90 mmHg. Lisinopril been added. I do not believe cardiology has any further inpatient work-up plan. Echocardiogram is pending at this time. Barring any abnormal echocardiogram he may discharge home with self-care. Greater than 30 minutes was spent managing the discharge of this patient. Vitals/I&O Vitals/I&O: Vital Signs Date Time Temp Pulse Resp B/P (MAP) Pulse Ox O2 Delivery O2 Flow Rate FiO2 01/11/21 12:26 53 163/92 01/11/21 11:00 97.7 20 98 Room Air 97.7 I & O 01/10/21 01/10/21 01/11/21 15:00 23:00 07:00 Intake Total 300 ml 0 ml Output Total 400 ml Balance -100 ml 0 ml Physical Exam General: Alert, Oriented X3, Cooperative, No acute distress Heart: Regular rate (SR/SB), Normal S1, Normal S2, No murmurs Abdomen: Soft, No tenderness Extremities: No cyanosis, No edema Skin: No breakdown, No significant lesion Labs Labs: Laboratory Tests Test 01/10/21 16:05 01/10/21 20:50 01/10/21 23:00 01/11/21 03:05 White Blood Count 4.5 x10^3/uL (4.0-11.0) Red Blood Count 4.39 x10^6/uL (4.30-5.70) Hemoglobin 14.5 g/dL (13.0-17.5) Hematocrit 42.9 % (39.0-53.0) Mean Corpuscular Volume 98 fL (79-100) Mean Corpuscular Hemoglobin 33 pg (25-35) Mean Corpuscular Hemoglobin Concent 34 g/dL (31-37) Red Cell Distribution Width 15.1 % (11.5-14.5) Platelet Count 161 x10^3/uL (140-400) Neutrophils (%) (Auto) 71 % (31-73) Lymphocytes (%) (Auto) 9 % (24-48) Monocytes (%) (Auto) 13 % (0-9) Eosinophils (%) (Auto) 6 % (0-3) Basophils (%) (Auto) 1 % (0-3) Neutrophils # (Auto) 3.2 x10^3/uL (1.8-7.7) Lymphocytes # (Auto) 0.4 x10^3/uL (1.0-4.8) Monocytes # (Auto) 0.6 x10^3/uL (0.0-1.1) Eosinophils # (Auto) 0.3 x10^3/uL (0.0-0.7) Basophils # (Auto) 0.1 x10^3/uL (0.0-0.2) Sodium Level 146 mmol/L (136-145) 146 mmol/L (136-145) Potassium Level 3.8 mmol/L (3.5-5.1) 3.5 mmol/L (3.5-5.1) Chloride Level 109 mmol/L (98-107) 109 mmol/L (98-107) Carbon Dioxide Level 25 mmol/L (21-32) 25 mmol/L (21-32) Anion Gap 12 (6-14) 12 (6-14) Blood Urea Nitrogen 17 mg/dL (8-26) 14 mg/dL (8-26) Creatinine 1.3 mg/dL (0.7-1.3) 1.1 mg/dL (0.7-1.3) Estimated GFR (Cockcroft-Gault) 55.1 66.8 BUN/Creatinine Ratio 13 (6-20) 13 (6-20) Glucose Level 128 mg/dL (70-99) 84 mg/dL (70-99) Calcium Level 8.8 mg/dL (8.5-10.1) 8.8 mg/dL (8.5-10.1) Magnesium Level 2.0 mg/dL (1.8-2.4) Total Bilirubin 0.7 mg/dL (0.2-1.0) 1.3 mg/dL (0.2-1.0) Aspartate Amino Transf (AST/SGOT) 139 U/L (15-37) 410 U/L (15-37) Alanine Aminotransferase (ALT/SGPT) 128 U/L (16-63) 534 U/L (16-63) Alkaline Phosphatase 115 U/L (46-116) 139 U/L (46-116) Creatine Kinase 86 U/L (39-308) Creatine Kinase MB (Mass) 1.5 ng/mL (0.0-3.6) Creatine Kinase MB Relative Index 1.7 % (0-4) Troponin I Quantitative < 0.017 ng/mL (0.000-0.055) < 0.017 ng/mL (0.000-0.055) < 0.017 ng/mL (0.000-0.055) Total Protein 6.5 g/dL (6.4-8.2) 6.3 g/dL (6.4-8.2) Albumin 3.5 g/dL (3.4-5.0) 3.7 g/dL (3.4-5.0) Albumin/Globulin Ratio 1.2 (1.0-1.7) 1.4 (1.0-1.7) Lipase 126 U/L (73-393) Urine Collection Type Unknown Urine Color Yellow Urine Clarity Clear Urine pH 6.0 (<5.0-8.0) Urine Specific [place] 1.020 (1.000-1.030) Urine Protein Negative mg/dL (NEG-TRACE) Urine Glucose (UA) Negative mg/dL (NEG) Urine Ketones (Stick) Negative mg/dL (NEG) Urine Blood Negative (NEG) Urine Nitrite Negative (NEG) Urine Bilirubin Negative (NEG) Urine Urobilinogen Dipstick 0.2 mg/dL (0.2 mg/dL) Urine Leukocyte Esterase Negative (NEG) Urine RBC Rare /HPF (0-2) Urine WBC Rare /HPF (0-4) Urine Squamous Epithelial Cells Occ /LPF Urine Bacteria 0 /HPF (0-FEW) Urine Mucus Slight /LPF Triglycerides Level 101 mg/dL (0-150) Cholesterol Level 148 mg/dL (0-200) LDL Cholesterol, Calculated 80 mg/dL (0-100) VLDL Cholesterol, Calculated 20 mg/dL (0-40) Non-HDL Cholesterol Calculated 100 mg/dL (0-129) HDL Cholesterol 48 mg/dL (40-60) Cholesterol/HDL Ratio 3.1 Test 01/11/21 08:05 Troponin I Quantitative < 0.017 ng/mL (0.000-0.055) Thyroid Stimulating Hormone (TSH) 1.255 uIU/mL (0.358-3.74) Assessment and Plan Assessmemt and Plan Problems Medical Problems: (1) Abnormal EKG Status: Acute (2) Epigastric pain Status: Acute Comment Review of Relevant I have reviewed the following items tl (where applicable) has been applied. Medications: Current Medications Medications (Trade) Dose Ordered Sig/Toña Route PRN Reason Start Time Stop Time Status Last Admin Dose Admin Pantoprazole Sodium (Protonix) 40 mg 1X ONCE PO 01/10/21 18:15 01/10/21 18:18 DC 01/10/21 18:39 Hydralazine HCl (Apresoline Inj) 10 mg PRN Q4HRS PRN IVP HTN 01/10/21 18:45 01/10/21 22:23 Aspirin (Tangela Aspirin) 325 mg DAILYWBKFT PO 01/11/21 08:00 01/11/21 12:26 Lisinopril (Prinivil) 10 mg DAILY PO 01/11/21 11:30 01/11/21 12:26 Pantoprazole Sodium (Protonix) 40 mg DAILYAC PO 01/11/21 13:00 01/11/21 12:26 Justifications for Admission Chest Pain Indications Is patient at high risk?: Yes Justification for admission: Patient is high risk based on hemodynamic instability, CHF, abnormal EKG/ECG/cardiac biomarkers/physical exam findings in context of chest pain persisting despite parenteral analgesics & optimal anti-anginal therapy. Other Justification MAT BALL MD January 11, 2021 15:23
--- NOTE | 2021-01-11 15:27 | PDOC3 ---
Discharge Summary Visit Information Date of Admission: January 10, 2021 Date of Discharge: January 11, 2021 Final Diagnosis Problems Medical Problems: (1) Abnormal EKG Status: Acute (2) Epigastric pain Status: Acute Brief Hospital Course Allergies Allergies Coded Allergies Type Severity Reaction Last Updated Verified No Known Drug Allergies 06/12/16 No Vital Signs Vital Signs Date Time Temp Pulse Resp B/P (MAP) Pulse Ox O2 Delivery O2 Flow Rate FiO2 01/11/21 12:26 53 163/92 01/11/21 11:00 97.7 20 98 Room Air 97.7 Lab Results Laboratory Tests Test 01/10/21 16:05 01/10/21 20:50 01/10/21 23:00 01/11/21 03:05 White Blood Count 4.5 x10^3/uL (4.0-11.0) Red Blood Count 4.39 x10^6/uL (4.30-5.70) Hemoglobin 14.5 g/dL (13.0-17.5) Hematocrit 42.9 % (39.0-53.0) Mean Corpuscular Volume 98 fL (79-100) Mean Corpuscular Hemoglobin 33 pg (25-35) Mean Corpuscular Hemoglobin Concent 34 g/dL (31-37) Red Cell Distribution Width 15.1 % (11.5-14.5) Platelet Count 161 x10^3/uL (140-400) Neutrophils (%) (Auto) 71 % (31-73) Lymphocytes (%) (Auto) 9 % (24-48) Monocytes (%) (Auto) 13 % (0-9) Eosinophils (%) (Auto) 6 % (0-3) Basophils (%) (Auto) 1 % (0-3) Neutrophils # (Auto) 3.2 x10^3/uL (1.8-7.7) Lymphocytes # (Auto) 0.4 x10^3/uL (1.0-4.8) Monocytes # (Auto) 0.6 x10^3/uL (0.0-1.1) Eosinophils # (Auto) 0.3 x10^3/uL (0.0-0.7) Basophils # (Auto) 0.1 x10^3/uL (0.0-0.2) Sodium Level 146 mmol/L (136-145) 146 mmol/L (136-145) Potassium Level 3.8 mmol/L (3.5-5.1) 3.5 mmol/L (3.5-5.1) Chloride Level 109 mmol/L (98-107) 109 mmol/L (98-107) Carbon Dioxide Level 25 mmol/L (21-32) 25 mmol/L (21-32) Anion Gap 12 (6-14) 12 (6-14) Blood Urea Nitrogen 17 mg/dL (8-26) 14 mg/dL (8-26) Creatinine 1.3 mg/dL (0.7-1.3) 1.1 mg/dL (0.7-1.3) Estimated GFR (Cockcroft-Gault) 55.1 66.8 BUN/Creatinine Ratio 13 (6-20) 13 (6-20) Glucose Level 128 mg/dL (70-99) 84 mg/dL (70-99) Calcium Level 8.8 mg/dL (8.5-10.1) 8.8 mg/dL (8.5-10.1) Magnesium Level 2.0 mg/dL (1.8-2.4) Total Bilirubin 0.7 mg/dL (0.2-1.0) 1.3 mg/dL (0.2-1.0) Aspartate Amino Transf (AST/SGOT) 139 U/L (15-37) 410 U/L (15-37) Alanine Aminotransferase (ALT/SGPT) 128 U/L (16-63) 534 U/L (16-63) Alkaline Phosphatase 115 U/L (46-116) 139 U/L (46-116) Creatine Kinase 86 U/L (39-308) Creatine Kinase MB (Mass) 1.5 ng/mL (0.0-3.6) Creatine Kinase MB Relative Index 1.7 % (0-4) Troponin I Quantitative < 0.017 ng/mL (0.000-0.055) < 0.017 ng/mL (0.000-0.055) < 0.017 ng/mL (0.000-0.055) Total Protein 6.5 g/dL (6.4-8.2) 6.3 g/dL (6.4-8.2) Albumin 3.5 g/dL (3.4-5.0) 3.7 g/dL (3.4-5.0) Albumin/Globulin Ratio 1.2 (1.0-1.7) 1.4 (1.0-1.7) Lipase 126 U/L (73-393) Urine Collection Type Unknown Urine Color Yellow Urine Clarity Clear Urine pH 6.0 (<5.0-8.0) Urine Specific [place] 1.020 (1.000-1.030) Urine Protein Negative mg/dL (NEG-TRACE) Urine Glucose (UA) Negative mg/dL (NEG) Urine Ketones (Stick) Negative mg/dL (NEG) Urine Blood Negative (NEG) Urine Nitrite Negative (NEG) Urine Bilirubin Negative (NEG) Urine Urobilinogen Dipstick 0.2 mg/dL (0.2 mg/dL) Urine Leukocyte Esterase Negative (NEG) Urine RBC Rare /HPF (0-2) Urine WBC Rare /HPF (0-4) Urine Squamous Epithelial Cells Occ /LPF Urine Bacteria 0 /HPF (0-FEW) Urine Mucus Slight /LPF Triglycerides Level 101 mg/dL (0-150) Cholesterol Level 148 mg/dL (0-200) LDL Cholesterol, Calculated 80 mg/dL (0-100) VLDL Cholesterol, Calculated 20 mg/dL (0-40) Non-HDL Cholesterol Calculated 100 mg/dL (0-129) HDL Cholesterol 48 mg/dL (40-60) Cholesterol/HDL Ratio 3.1 Test 01/11/21 08:05 Troponin I Quantitative < 0.017 ng/mL (0.000-0.055) Thyroid Stimulating Hormone (TSH) 1.255 uIU/mL (0.358-3.74) Laboratory Tests Test 01/10/21 16:05 01/10/21 20:50 01/10/21 23:00 01/11/21 03:05 White Blood Count 4.5 x10^3/uL (4.0-11.0) Red Blood Count 4.39 x10^6/uL (4.30-5.70) Hemoglobin 14.5 g/dL (13.0-17.5) Hematocrit 42.9 % (39.0-53.0) Mean Corpuscular Volume 98 fL (79-100) Mean Corpuscular Hemoglobin 33 pg (25-35) Mean Corpuscular Hemoglobin Concent 34 g/dL (31-37) Red Cell Distribution Width 15.1 % (11.5-14.5) Platelet Count 161 x10^3/uL (140-400) Neutrophils (%) (Auto) 71 % (31-73) Lymphocytes (%) (Auto) 9 % (24-48) Monocytes (%) (Auto) 13 % (0-9) Eosinophils (%) (Auto) 6 % (0-3) Basophils (%) (Auto) 1 % (0-3) Neutrophils # (Auto) 3.2 x10^3/uL (1.8-7.7) Lymphocytes # (Auto) 0.4 x10^3/uL (1.0-4.8) Monocytes # (Auto) 0.6 x10^3/uL (0.0-1.1) Eosinophils # (Auto) 0.3 x10^3/uL (0.0-0.7) Basophils # (Auto) 0.1 x10^3/uL (0.0-0.2) Sodium Level 146 mmol/L (136-145) 146 mmol/L (136-145) Potassium Level 3.8 mmol/L (3.5-5.1) 3.5 mmol/L (3.5-5.1) Chloride Level 109 mmol/L (98-107) 109 mmol/L (98-107) Carbon Dioxide Level 25 mmol/L (21-32) 25 mmol/L (21-32) Anion Gap 12 (6-14) 12 (6-14) Blood Urea Nitrogen 17 mg/dL (8-26) 14 mg/dL (8-26) Creatinine 1.3 mg/dL (0.7-1.3) 1.1 mg/dL (0.7-1.3) Estimated GFR (Cockcroft-Gault) 55.1 66.8 BUN/Creatinine Ratio 13 (6-20) 13 (6-20) Glucose Level 128 mg/dL (70-99) 84 mg/dL (70-99) Calcium Level 8.8 mg/dL (8.5-10.1) 8.8 mg/dL (8.5-10.1) Magnesium Level 2.0 mg/dL (1.8-2.4) Total Bilirubin 0.7 mg/dL (0.2-1.0) 1.3 mg/dL (0.2-1.0) Aspartate Amino Transf (AST/SGOT) 139 U/L (15-37) 410 U/L (15-37) Alanine Aminotransferase (ALT/SGPT) 128 U/L (16-63) 534 U/L (16-63) Alkaline Phosphatase 115 U/L (46-116) 139 U/L (46-116) Creatine Kinase 86 U/L (39-308) Creatine Kinase MB (Mass) 1.5 ng/mL (0.0-3.6) Creatine Kinase MB Relative Index 1.7 % (0-4) Troponin I Quantitative < 0.017 ng/mL (0.000-0.055) < 0.017 ng/mL (0.000-0.055) < 0.017 ng/mL (0.000-0.055) Total Protein 6.5 g/dL (6.4-8.2) 6.3 g/dL (6.4-8.2) Albumin 3.5 g/dL (3.4-5.0) 3.7 g/dL (3.4-5.0) Albumin/Globulin Ratio 1.2 (1.0-1.7) 1.4 (1.0-1.7) Lipase 126 U/L (73-393) Urine Collection Type Unknown Urine Color Yellow Urine Clarity Clear Urine pH 6.0 (<5.0-8.0) Urine Specific [place] 1.020 (1.000-1.030) Urine Protein Negative mg/dL (NEG-TRACE) Urine Glucose (UA) Negative mg/dL (NEG) Urine Ketones (Stick) Negative mg/dL (NEG) Urine Blood Negative (NEG) Urine Nitrite Negative (NEG) Urine Bilirubin Negative (NEG) Urine Urobilinogen Dipstick 0.2 mg/dL (0.2 mg/dL) Urine Leukocyte Esterase Negative (NEG) Urine RBC Rare /HPF (0-2) Urine WBC Rare /HPF (0-4) Urine Squamous Epithelial Cells Occ /LPF Urine Bacteria 0 /HPF (0-FEW) Urine Mucus Slight /LPF Triglycerides Level 101 mg/dL (0-150) Cholesterol Level 148 mg/dL (0-200) LDL Cholesterol, Calculated 80 mg/dL (0-100) VLDL Cholesterol, Calculated 20 mg/dL (0-40) Non-HDL Cholesterol Calculated 100 mg/dL (0-129) HDL Cholesterol 48 mg/dL (40-60) Cholesterol/HDL Ratio 3.1 Test 01/11/21 08:05 Troponin I Quantitative < 0.017 ng/mL (0.000-0.055) Thyroid Stimulating Hormone (TSH) 1.255 uIU/mL (0.358-3.74) Brief Hospital Course Mr. Weeks is a 65 old male who presented with chest pain. Consultations placed to cardiology. Troponins were undetectable x3. Transaminitis that was noted on admission was likely due to his revlimid therapy for history of multiple myeloma. Consultations with GI, and they agreed that transaminitis likely secondary to medication side effect. Recommended to follow-up outpatient. Echocardiogram showed the left ventricular systolic function is normal and the ejection fraction is within normal range, the Ejection Fraction is 50-55%, there is normal LV segmental wall motion. Symptoms likely secondary to GERD. Patient stable for discharge with close PCP follow-up. Greater than 30 minutes was spent managing the discharge of this patient. Discharge Information Condition at Discharge: Improved Follow Up: Weeks Disposition/Orders: D/C to Home Scheduled Lenalidomide (Revlimid) 5 Mg Capsule, 1 CAP PO DAILY for , (Reported) Entered as Reported by: WILL HERNANDES RN on 01/10/212103 Last Action: New Order on 01/10/212103 by WILL HERNANDES RN Lisinopril (Lisinopril) 10 Mg Tablet, 1 TAB PO DAILY for BLOOD PRESSURE, #30 Ref 5 (Reported) Entered as Reported by: Rocky Du on 01/11/21 1712 Scheduled PRN Diclofenac Sodium (Diclofenac Sodium) 75 Mg Tablet.dr, 1 TAB PO PRN BID PRN for headache, (Reported) Entered as Reported by: WILL HERNANDES RN on 01/10/212103 Last Action: New Order on 01/10/212103 by WILL HERNANDES RN Justicifation of Admission Dx: Justifications for Admission: Justification of Admission Dx: Yes MAT BALL MD January 11, 2021 15:27
--- NOTE | 2021-01-11 16:29 | CARD ---
MR#: [id number] Date of Study: 01/11/2021 Ordering Physician: FARZANA BAILEY, Referring Physician: FARZANA BAILEY Tech: Eugenia Schmidt BJ APPROVED REPORT EXAM: Two-dimensional and M-mode echocardiogram with Doppler and color Doppler. Other Information Quality : Good Rhythm : PVC's INDICATION PVC's 2D DIMENSIONS RVDd2.3 (2.9-3.5cm)Left Atrium(2D)3.7 (1.6-4.0cm) IVSd1.3 (0.7-1.1cm)Aortic Root(2D)3.6 (2.0-3.7cm) LVDd5.3 (3.9-5.9cm)LVOT Diameter2.2 (1.8-2.4cm) PWd1.4 (0.7-1.1cm)LVDs3.0 (2.5-4.0cm) FS (%) 25.0 %SV18.2 ml LVEF(%)50.0 (>50%) Aortic Valve AoV Peak Teodoro.99.3cm/sAoV VTI16.9cm AO Peak GR.3.9mmHgLVOT Peak Teodoro.97.2cm/s AO Mean GR.2mmHgAVA (VMAX)3.60cm2 MARY (VTI)3.80cm2 Mitral Valve MV E Aamrertu01.6cm/sMV DECEL QBFL690je MV A Ukebqxye24.2cm/sE/A Ratio0.5 Pulmonary Vein S1 Lskjxshc97.5cm/sD2 Fomybgft98.2cm/s LEFT VENTRICLE The left ventricle is normal size. There is mild concentric left ventricular hypertrophy. The left ve ntricular systolic function is normal and the ejection fraction is within normal range. The Ejection Fraction is 50-55%. There is normal LV segmental wall motion. Transmitral Doppler flow pattern is Gra de I-abnormal relaxation pattern. RIGHT VENTRICLE The right ventricle is normal size. The right ventricular systolic function is normal. ATRIA The left atrium size is normal. The right atrium size is normal. The interatrial septum is intact wit h no evidence for an atrial septal defect or patent foramen ovale as noted on 2-D or Doppler imaging. AORTIC VALVE The aortic valve is calcified but opens well. Doppler and Color Flow revealed no significant aortic r egurgitation. There is no significant aortic valvular stenosis. MITRAL VALVE The mitral valve is normal in structure and function. There is no evidence of mitral valve prolapse. There is no mitral valve stenosis. Doppler and Color Flow revealed no mitral valve regurgitation note d. TRICUSPID VALVE The tricuspid valve is normal in structure and function. Doppler and Color Flow revealed no tricuspid valve regurgitation noted. There is no tricuspid valve stenosis. PULMONIC VALVE The pulmonic valve is not well visualized. Doppler and Color Flow revealed trace to mild pulmonic uzma vular regurgitation. There is no pulmonic valvular stenosis. GREAT VESSELS The aortic root is normal in size. The ascending aorta is normal in size. The IVC is normal in size a nd collapses >50% with inspiration. PERICARDIAL EFFUSION There is no evidence of significant pericardial effusion. Critical Notification Critical Value: No <Conclusion> The left ventricular systolic function is normal and the ejection fraction is within normal range. Th e Ejection Fraction is 50-55%. There is normal LV segmental wall motion. Signed by : Hugo Martin, Electronically Approved : 01/11/2021 16:29:08
[2021-01-11] MEDS ORDERED: LISI10TA16 PO (17:12)
--- NOTE | 2021-01-11 18:05 | NUR ---
DISCHARGED PATIENT TO HOME. DISCHARGE INSTRUCTIONS GIVEN. PIV AND HEART MONITOR REMOVED.ESCORTED PATIENT OFF UNIT INTO A PRIVATE VEHICLE.
== END 2021-01-11 18:05 | disposition home or self-care (01) ==
LOC: ER 15:10 → ED HOLD 18:39 → 2 NORTH 20:53
PROVIDERS: ADMIT Internal Medicine; ATTEND Internal Medicine
DX: R94.31 Abnormal electrocardiogram [ECG] [EKG] (principal); R10.13 Epigastric pain; R07.89 Other chest pain; R74.01 Elevation of levels of liver transaminase levels; C90.00 Multiple myeloma not having achieved remission; E78.00 Pure hypercholesterolemia, unspecified; E78.5 Hyperlipidemia, unspecified; I10 Essential (primary) hypertension; I49.3 Ventricular premature depolarization; K21.9 Gastro-esophageal reflux disease without esophagitis; G62.9 Polyneuropathy, unspecified; K22.4 Dyskinesia of esophagus; K57.92 Diverticulitis of intestine, part unspecified, without perforation or abscess without bleeding; K76.0 Fatty (change of) liver, not elsewhere classified; C64.9 Malignant neoplasm of unspecified kidney, except renal pelvis; B34.9 Viral infection, unspecified; N17.0 Acute kidney failure with tubular necrosis; E88.89 Other specified metabolic disorders; K22.2 Esophageal obstruction; N28.1 Cyst of kidney, acquired; Z85.528 Personal history of other malignant neoplasm of kidney; Z90.5 Acquired absence of kidney
CPT/HCPCS: 36415; 74022; 76700; 80053; 80061; 81001; 82553; 83690; 83735; 84443; 84484; 85025; 86705; 86709; 86803; 87340; 93005; 93306; 96374; 99285; G0378; J0360; G0379

== ENCOUNTER 2021-01-14 19:05 | Emergency (ER) | payer MEDICARE, OTHER ==
[~2021-01-14] VITALS: Ht 185.4 cm; Wt 91.1 kg
[~2021-01-14 19:05] MED LIST changes: +DICL75TA PO; +LENA5CAP PO; +LISI10TA16 PO
[2021-01-14 19:19] VITALS: BP 177/85
[2021-01-14 19:45] LABS: BASO # 0.1 x10^3/uL (0.0-0.2); BASO % 1 % (0-3); EOS # 0.3 x10^3/uL (0.0-0.7); EOS % 3 % (0-3); HEMATOCRIT 45.1 % (39.0-53.0); HEMOGLOBIN 15.4 g/dL (13.0-17.5); LYMPH # 0.9 x10^3/uL (1.0-4.8); LYMPH % 10 % (24-48); MEAN CORPUSCULAR HEMOGLOBIN 33 pg (25-35); MEAN CORPUSCULAR HGB CONC 34 g/dL (31-37); MEAN CORPUSCULAR VOLUME 98 fL (79-100); MONO # 0.9 x10^3/uL (0.0-1.1); MONO % 10 % (0-9); NEUT # 6.5 x10^3/uL (1.8-7.7); NEUT % 75 % (31-73); PLATELET COUNT 159 x10^3/uL (140-400); RED CELL DISTRIBUTION WIDTH 15.3 % (11.5-14.5); WHITE BLOOD COUNT 8.6 x10^3/uL (4.0-11.0)
[2021-01-14 19:55] LABS: CALCIUM 9.6 mg/dL (8.5-10.1); CREATININE 1.5 mg/dL (0.7-1.3); GFR 46.7; POTASSIUM 3.8 mmol/L (3.5-5.1)
[2021-01-14 20:01] LABS: ALBUMIN/GLOBULIN RATIO 1.3 (1.0-1.7); TOTAL BILIRUBIN 1.5 mg/dL (0.2-1.0); TOTAL PROTEIN 7.2 g/dL (6.4-8.2)
--- NOTE | 2021-01-14 20:06 | PHYS DOC ---
Past Medical History Past Medical History: Other Additional Past Medical Histor: multiple myeloma Past Surgical History: No Surgical History Additional Past Surgical Histo: KIDNEY CA Smoking Status: Never Smoker Alcohol Use: Rarely Drug Use: None General Adult EDM: Chief Complaint: ABDOMINAL PAIN HPI: HPI: Patient is a 65 year old male past medical history multiple myeloma and hypertension presents with a chief complaint of abdominal pain. Patient states abdominal pain started 4 hours ago. Pain is located periumbilical bilateral with radiation to bilateral flank. Patient has associated nausea and vomited. Patient rates pain a 5 out of 10. Patient denies any substernal chest pain or shortness of breath. Patient was admitted to hospital for same pain 2 days prior. US performed - visualized gb within normal limits. Review of Systems: Review of Systems: Constitutional: Denies fever or chills. [] Eyes: Denies change in visual acuity. [] HENT: Denies nasal congestion or sore throat. [] Respiratory: Denies cough or shortness of breath. [] Cardiovascular: Denies chest pain or edema. [] GI: Positive abdominal pain, Positive nausea, Positive vomiting : Denies dysuria. [] Musculoskeletal: Denies back pain or joint pain. [] Integument: Denies rash. [] Neurologic: Denies headache, focal weakness or sensory changes. [] Endocrine: Denies polyuria or polydipsia. [] Lymphatic: Denies swollen glands. [] Psychiatric: Denies depression or anxiety. [] Heart Score: C/O Chest Pain: N/A Risk Factors: Risk Factors: DM, Current or recent (<one month) smoker, HTN, HLP, family history of CAD, obesity. Risk Scores: Score 0 - 3: 2.5% MACE over next 6 weeks - Discharge Home Score 4 - 6: 20.3% MACE over next 6 weeks - Admit for Clinical Observation Score 7 - 10: 72.7% MACE over next 6 weeks - Early Invasive Strategies Allergies: Allergies: Allergies Coded Allergies Type Severity Reaction Last Updated Verified No Known Drug Allergies 06/12/16 No Physical Exam: PE: Constitutional: Well developed, well nourished, no acute distress, non-toxic appearance. [] HENT: Normocephalic, atraumatic, bilateral external ears normal, oropharynx moist, no oral exudates, nose normal. [] Eyes: PERRLA, EOMI, conjunctiva normal, no discharge. [] Neck: Normal range of motion, no tenderness, supple, no stridor. [] Cardiovascular:Heart rate regular rhythm, no murmur [] Lungs & Thorax: Bilateral breath sounds clear to auscultation [] Abdomen: Bowel sounds normal, soft, no tenderness, no masses, no pulsatile masses. [] Skin: Warm, dry, no erythema, no rash. [] Back: No tenderness, no CVA tenderness. [] Extremities: No tenderness, no cyanosis, no clubbing, ROM intact, no edema. [] Neurologic: Alert and oriented X 3, normal motor function, normal sensory function, no focal deficits noted. [] Psychologic: Affect normal, judgement normal, mood normal. [] Current Patient Data: Labs: Laboratory Tests Test 01/14/21 19:20 White Blood Count 8.6 x10^3/uL (4.0-11.0) Red Blood Count 4.60 x10^6/uL (4.30-5.70) Hemoglobin 15.4 g/dL (13.0-17.5) Hematocrit 45.1 % (39.0-53.0) Mean Corpuscular Volume 98 fL (79-100) Mean Corpuscular Hemoglobin 33 pg (25-35) Mean Corpuscular Hemoglobin Concent 34 g/dL (31-37) Red Cell Distribution Width 15.3 % (11.5-14.5) H Platelet Count 159 x10^3/uL (140-400) Neutrophils (%) (Auto) 75 % (31-73) H Lymphocytes (%) (Auto) 10 % (24-48) L Monocytes (%) (Auto) 10 % (0-9) H Eosinophils (%) (Auto) 3 % (0-3) Basophils (%) (Auto) 1 % (0-3) Neutrophils # (Auto) 6.5 x10^3/uL (1.8-7.7) Lymphocytes # (Auto) 0.9 x10^3/uL (1.0-4.8) L Monocytes # (Auto) 0.9 x10^3/uL (0.0-1.1) Eosinophils # (Auto) 0.3 x10^3/uL (0.0-0.7) Basophils # (Auto) 0.1 x10^3/uL (0.0-0.2) Laboratory Tests 01/14/21 19:20 Vital Signs: Vital Signs Date Time Temp Pulse Resp B/P (MAP) Pulse Ox O2 Delivery O2 Flow Rate FiO2 01/14/21 19:19 98.5 85 16 177/85 (115) 98 Room Air 98.5 EKG: EKG: KG performed at 1947 heart rate 77 sinus rhythm PVCs [] Radiology/Procedures: Radiology/Procedures: [] Impression: HISTORY: Abdominal pain CT abdomen pelvis was done using 60 mL Omnipaque 300 contrast. Comparison is made with a study from September 2017. Lung bases are clear. There is no effusion. There is diffuse decreased bone density throughout the osseous structures chavez ggesting myeloma. A liver lesion is not identified. There is a prominent gallstone in the gallbladder. Gallbladder wall is not thickened. Spleen is normal in appearance except for a tiny low-density nonspecific lesion. Adrenal glands and pancreas are unremarkable. There are bilateral renal cysts, no further follow-up the renal cysts is warranted. There is no retroperitoneal adenopathy. There is no free air or ascites or bowel obstruction. Appendix is normal. There is diverticulosis of the colon. I do not see an acute diverticulitis. There is no small bowel obstruction. Bladder is mildly disten ded. IMPRESSION: 1. Decreased bone density with multiple lucent lesions throughout the lumbar spine and pelvis, possible myeloma, pattern is similar to the old study. 2. Normal appendix. 3. Cholelithiasis. 4. Diverticulosis without acute diverticulitis. Course & Med Decision Making: Course & Med Decision Making Pertinent Labs and Imaging studies reviewed. (See chart for details) [] Patient was evaluated for chief complaint. Work-up consisted of laboratory analysis and radiologic imaging. Results reviewed and discussed with patient. Patient recently admitted ultrasound performed--visualized portion of the gallbladder within the normal limits. CT imaging today shows gallstones without gallbladder wall thickening. Patient is noted to have chronic elevated liver enzymes related to medications. Patient's pain on arrival was 5 out of 10. Patient was treated with morphine with improvement to 1 out of 10. Suspect patient's pain related to gallbladder-cholelithiasis. Patient's white blood cell count within normal limits. Attempted to contact patient's primary care physician he is not on-call. Patient states he has an appointment with his PCP on . We will discharge patient home on hydrocodone and Zofran. Patient will also be given referral to general surgery. Brittney Disclaimer: Brittney Disclaimer: This electronic medical record was generated, in whole or in part, using a voice recognition dictation system. Departure Departure Impression: Primary Impression: Abdominal pain Additional Impression: Cholelithiasis Disposition: HOME / SELF CARE / HOMELESS Condition: STABLE Referrals: GINNA JENKINS MD (PCP) Patient Instructions: Abdominal Pain, Cholelithiasis Scripts Ondansetron Hcl (ZOFRAN) 4 Mg Tablet 1 TAB PO Q6HRS, #20 TAB Prov: LOVE GIVENS DO 01/14/21 Hydrocodone/Acetaminophen (Hydrocodone-Acetamin 5-325 mg) 1 Each Tablet 1 EACH PO Q4-6HRS, #20 TAB Prov: LOVE GIVENS DO 01/14/21 LOVE GIVENS DO January 14, 2021 20:06
[2021-01-14] MEDS ORDERED: IV NORMAL SALINE 1000ML BAG 1,000 ML IV ONE (20:30)
[2021-01-14] MEDS ORDERED: MORPHINE SULFATE 4 MG/ML VIAL. IV ONE (20:30)
[2021-01-14] MEDS ORDERED: ONDANSETRON PF 4 MG/2 ML VIAL. IVP ONE (20:30)
[2021-01-14] MEDS ORDERED: CONTRAST GIVEN. MC PRN (20:45)
[2021-01-14] MEDS ORDERED: IOHEXOL 300 MG/ML 100ML VIAL. IV ONE (20:45)
[2021-01-14 20:51] LABS: BILIRUBIN,URINE NEGATIVE (NEG); CLARITY,URINE CLEAR; COLOR,URINE YELLOW; NITRITE,URINE NEGATIVE (NEG); PROTEIN,URINE NEGATIVE (NEG-TRACE); UROBILINOGEN,URINE 0.2 mg/dL (0.2 mg/dL)
[2021-01-14 21:00] LABS: AMORPHOUS SEDIMENT,UR PRESENT /HPF
[2021-01-14 21:03] LABS: BACTERIA,URINE 0 /HPF (0-FEW); RBC,URINE 0 /HPF (0-2)
--- NOTE | 2021-01-14 21:12 | RAD ---
CT abdomen pelvis with contrast. HISTORY: Abdominal pain CT abdomen pelvis was done using 60 mL Omnipaque 300 contrast. Comparison is made with a study from J anuary 2018. Lung bases are clear. There is no effusion. There is diffuse decreased bone density thro ughout the osseous structures suggesting myeloma. A liver lesion is not identified. There is a promin ent gallstone in the gallbladder. Gallbladder wall is not thickened. Spleen is normal in appearance e xcept for a tiny low-density nonspecific lesion. Adrenal glands and pancreas are unremarkable. There are bilateral renal cysts, no further follow-up the renal cysts is warranted. There is no retroperito keyur adenopathy. There is no free air or ascites or bowel obstruction. Appendix is normal. There is d iverticulosis of the colon. I do not see an acute diverticulitis. There is no small bowel obstruction . Bladder is mildly distended. IMPRESSION: 1. Decreased bone density with multiple lucent lesions throughout the lumbar spine and pelvis, possib le myeloma, pattern is similar to the old study. 2. Normal appendix. 3. Cholelithiasis. 4. Diverticulosis without acute diverticulitis. PQRS Compliance Statement: One or more of the following individualized dose reduction techniques were utilized for this examinat ion: 1. Automated exposure control 2. Adjustment of the mA and/or kV according to patient size 3. Use of iterative reconstruction technique Electronically signed by: Delta Oswald MD (01/14/2021 9:09 PM) [facility]
[2021-01-14] MEDS ORDERED: HYDR-2759 PO (22:34)
[2021-01-14] MEDS ORDERED: ONDA4TAB7 PO (22:34)
--- NOTE | 2021-01-15 07:24 | EKG ---
[facility] [address] [place] [address] Test Date: 2021-01-14 Test Time: 19:47:16 Pat Name: AVILA HENNESSY Department: Room: Gender: Hedge Trimmer: : 1955 Requested By: LOVE GIVENS Order Number: [id number] Reading MD: Measurements Intervals [place] Rate: 77 P: 42 SC: 184 QRS: -13 QRSD: 104 T: 62 QT: 390 QTc: 443 Interpretive Statements SINUS RHYTHM VENTRICULAR PREMATURE COMPLEX(ES) LEFTWARD AXIS ABNORMAL ECG RI6.01 No previous ECG available for comparison
== END 2021-01-14 23:00 | disposition home or self-care (01) ==
LOC: ER 19:05
DX: K80.20 Calculus of gallbladder without cholecystitis without obstruction (principal); I10 Essential (primary) hypertension
CPT/HCPCS: 36415; 74177; 80053; 81001; 84484; 85025; 93005; 96361; 96374; 96375; 99285; J2270; J2405; J7030; Q9967

== ENCOUNTER 2021-03-16 06:32 | Day surgery (SDC) | payer MEDICARE, OTHER ==
[~2021-03-16] VITALS: Ht 185.4 cm; Wt 87.0 kg
[~2021-03-16 06:32] MED LIST changes: +ACETAMINOPHEN 500 MG TABLET PO PRN; +HYDR-2759 PO; +HYDROmorphone 2 MG/ML VIAL IVP PRN; +IV RINGERS,LACTATED 1000ML 1,000 ML IV SCH; +MORPHINE SULFATE 2 MG/ML INJ. IVP PRN; +ONDA4TAB7 PO; +PROCHLORPERAZINE 10 MG/2 ML VIAL. IVP PRN; +fentaNYL PF VIAL 100 MCG/2 ML VIAL IVP PRN
[2021-03-16 07:00] VITALS: BP 165/97
[2021-03-16] MEDS ORDERED: IOHEXOL 300 MG/ML 50 ML VIAL. ONE (07:02)
[2021-03-16] MEDS ORDERED: BUPIVACAINE-EPI 0.25%-1:200000 MPF 30 ML VIAL. ONE (07:03)
[2021-03-16] MEDS ORDERED: SURGICEL HEMOSTAT 4X8 EACH. ONE (07:03)
--- NOTE | 2021-03-16 07:13 | NUR ---
ICG GREEN ORDERED 2.5MG IV PRIOR TO ROBOTIC SURGERY. 1CC ADMINISTERED VIA IV @ 0713. +
[2021-03-16] MEDS ORDERED: ROCURONIUM 50 MG/5 ML VIAL. ONE (07:29)
[2021-03-16] MEDS ORDERED: fentaNYL PF VIAL 100 MCG/2 ML VIAL ONE (07:29)
[2021-03-16] MEDS ORDERED: LIDOCAINE 2% PF 5 ML VIAL. ONE (07:30)
[2021-03-16] MEDS ORDERED: PROPOFOL 10 MG/ML (20ML) VIAL. IV ONE (07:30)
[2021-03-16] MEDS ORDERED: ONDANSETRON PF 4 MG/2 ML VIAL. ONE (07:30)
[2021-03-16] MEDS ORDERED: DEXAMETHASONE SOD PHOS 4 MG/ML VIAL ONE (07:30)
--- NOTE | 2021-03-16 07:45 | PDOC1 ---
History and Physical Date of Admission Date of Admission DATE: 03/16/21 TIME: 07:43 Identification/Chief Complaint Chief Complaint Abdominal pain Source Source: Chart review, Patient History of Present Illness History of Present Illness 65-year-old male with recent complaints of abdominal pain recently hospitalized CT scan of his abdomen shows gallstones. Patient has a history of multiple myeloma Past Medical History Cardiovascular: HTN, Hyperlipidemia Pulmonary: No pertinent hx CENTRAL NERVOUS SYSTEM: Periperal neuropathy GI: GERD, Other Heme/Onc: Cancer Hepatobiliary: No pertinent hx Psych: No pertinent hx Musculoskeletal: low back pain, Osteoarthritis, Other Rheumatologic: No pertinent hx Infectious disease: No pertinent hx Renal/: Other Endocrine: No pertinent hx Past Surgical History Past Surgical History: Arthroscopy, Hernia Repair, Other Family History Family History: Cancer Social History ALCOHOL: rare Drugs: None Current Medications Current Medications Current Medications Fentanyl Citrate (Fentanyl 2ml Vial) 25 mcg PRN Q5MIN PRN IVP MILD PAIN 1-3; Start 03/16/21 at 06:00; Stop 03/17/21 at 05:59 Fentanyl Citrate (Fentanyl 2ml Vial) 50 mcg PRN Q5MIN PRN IVP MODERATE PAIN 4- 6; Start 03/16/21 at 06:00; Stop 03/17/21 at 05:59 Morphine Sulfate (Morphine Sulfate) 1 mg PRN Q10MIN PRN IVP SEVERE PAIN 7-10; Start 03/16/21 at 06:00; Stop 03/17/21 at 05:59 Ringer's Solution 1,000 ml @ 30 mls/hr Q24H IV Last administered on 03/16/21at 07:12; Start 03/16/21 at 06:00; Stop 03/16/21 at 17:59 Hydromorphone HCl (Dilaudid) 0.5 mg PRN Q10MIN PRN IVP SEVERE PAIN 7-10, 2nd CHOICE; Start 03/16/21 at 06:00; Stop 03/17/21 at 05:59 Prochlorperazine Edisylate (Compazine) 5 mg PACU PRN PRN IVP NAUSEA, MRX1; Start 03/16/21 at 06:00; Stop 03/17/21 at 05:59 Cefazolin Sodium/ Dextrose 50 ml @ 100 mls/hr 1X PREOP PRN IV PRIOR TO PROCEDURE; Start 03/16/21 at 06:00; Stop 03/16/21 at 18:00 Acetaminophen (Tylenol) 1,000 mg 1X PREOP PRN PO PRIOR TO PROCEDURE Last administered on 03/16/21at 07:12; Start 03/16/21 at 06:00 Iohexol (Omnipaque 300 Mg/ml) 50 ml STK-MED ONCE .ROUTE ; Start 03/16/21 at 07:02; Stop 03/16/21 at 07:03; Status DC Cellulose (Surgicel Hemostat 4x8) 1 each STK-MED ONCE .ROUTE ; Start 03/16/21 at 07:03; Stop 03/16/21 at 07:03; Status DC Bupivacaine HCl/ Epinephrine Bitart (Sensorcaine-Epi 0.25%-1:523153 Mpf) 30 ml STK-MED ONCE .ROUTE ; Start 03/16/21 at 07:03; Stop 03/16/21 at 07:03; Status DC Rocuronium [place] (Zemuron) 50 mg STK-MED ONCE .ROUTE ; Start 03/16/21 at 07:29; Stop 03/16/21 at 07:30; Status DC Fentanyl Citrate (Fentanyl 2ml Vial) 100 mcg STK-MED ONCE .ROUTE ; Start 03/16/21 at 07:29; Stop 03/16/21 at 07:30; Status DC Propofol (Diprivan) 200 mg STK-MED ONCE IV ; Start 03/16/21 at 07:30; Stop 03/16/21 at 07:30; Status DC Lidocaine HCl (Lidocaine Pf 2% Vial) 5 ml STK-MED ONCE .ROUTE ; Start 03/16/21 at 07:30; Stop 03/16/21 at 07:30; Status DC Ondansetron HCl (Zofran) 4 mg STK-MED ONCE .ROUTE ; Start 03/16/21 at 07:30; Stop 03/16/21 at 07:30; Status DC Dexamethasone Sodium Phosphate (Decadron) 4 mg STK-MED ONCE .ROUTE ; Start 03/16/21 at 07:30; Stop 03/16/21 at 07:31; Status DC Active Scripts Active Zofran (Ondansetron Hcl) 4 Mg Tablet 1 Tab PO Q6HRS Hydrocodone-Acetamin 5-325 mg (Hydrocodone/Acetaminophen) 1 Each Tablet 1 Each PO Q4-6HRS Reported Lisinopril 10 Mg Tablet 1 Tab PO DAILY Diclofenac Sodium 75 Mg Tablet.dr 1 Tab PO PRN BID PRN Revlimid (Lenalidomide) 5 Mg Capsule 1 Cap PO DAILY Allergies Allergies: Coded Allergies: No Known Drug Allergies (Unverified , 03/16/21) ROS Gastrointestinal: Yes Abdominal Pain Physical Exam General: Alert, Oriented X3, Cooperative, No acute distress HEENT: Atraumatic, EOMI Lungs: Clear to auscultation, Normal air movement Heart: RRR, no murmurs Abdomen: Normal bowel sounds, Soft, Other (Mildly tender to palpation right upper quadrant) Rectal Exam: not examined Extremities: No edema Skin: No significant lesion Neuro: Normal speech Psych/Mental Status: Mental status NL Vitals Vitals Vital Signs Date Time Temp Pulse Resp B/P (MAP) Pulse Ox O2 Delivery O2 Flow Rate FiO2 03/16/21 07:04 97.5 65 20 165/97 97 Room Air 97.5 VTE Prophylaxis Ordered VTE Prophylaxis Devices: Yes VTE Pharmacological Prophylaxi: Contraindicated Assessment/Plan Assessment/Plan Chronic cholecystitis plan laparoscopic cholecystectomy Justifications for Admission Other Justification DAVID LARIOS MD Mar 16, 2021 07:45
[2021-03-16] MEDS ORDERED: SEVOFLURANE 61 TO 120 MINUTES. IH ONE (07:56)
[2021-03-16] MEDS ORDERED: ePHEDrine PF IN SALINE 50 MG/10 ML SYRINGE. IV ONE (07:56)
[2021-03-16] MEDS ORDERED: GLYCOPYRROLATE 1 MG/5 ML VIAL. ONE (07:59)
[2021-03-16] MEDS ORDERED: NEOSTIGMINE METHYLSULFATE 5 MG/5 ML SYRINGE. ONE (07:59)
[2021-03-16] MEDS ORDERED: PHENYLEPHRINE in 0.9% NACL PF 1 MG/10 ML SYRINGE. IV ONE (08:28)
[2021-03-16] MEDS ORDERED: SUGAMMADEX SODIUM 200 MG/2 ML VIAL. IVP ONE (08:30)
--- NOTE | 2021-03-16 08:34 | PDOC4 ---
Operative Note Operative Note Date: March 162020 at 831 Preoperative diagnosis: Chronic cholecystitis cholelithiasis Postoperative diagnosis: Same Procedure: Laparoscopic cholecystectomy with fluorescein cholangiography Surgeon: Larry Specimen: Gallbladder Dictation: Patient is a 65-year-old gentleman with complaints of right upper quadrant abdominal pain a CT scan showing gallstones. Procedure of laparoscopic cholecystectomy was explained to the patient detail risk-benefit were also discussed including bleeding infection injury to intra-abdominal contents possible necessitating further open operations alternatives to this procedure also discussed with the patient who seemed to understand and gave both verbal and written consent to have the procedure performed. Patient was taken to the operating room placed in the supine position general anesthesia was initiated once patient was sleeping intubated his abdomen was prepped and draped usual sterile fashion using ChloraPrep. Area just below the umbilicus was injected with quarter percent Marcaine with epinephrine incision was made 11 blade scalpel and a varies needle was placed within the abdomen creating pneumoperitoneum once this was complete the millimeter port was placed and a 5 mm camera was placed within the abdomen which was inspected no other abnormalities were noted. 5 mm port was placed in the epigastrium a 5 mm port was placed in the right midabdomen a 5 mm port was placed in the right lateral abdomen. The dome of the gallbladder is grasped retracted cephalad the infundibulum of the gallbladder is grasped tract laterally exposing the triangle fluorescein was visualized which showed the common bile duct structures did not show the cystic duct which showed that the gallbladder was hydrops with occlusion. Adherent tissues of the triangle were taken down exposing the cystic duct which was doubly clipped and transected the cystic artery was also clipped and transected the gallbladder was taken off the liver with hook electrocautery placed in Endo Catch bag and removed the umbilicus right upper quadrant is irrigated suctioned dry hemostasis deemed be appropriate the pneumoperitoneum was reduced all ports were removed the fascial defect at the umbilicus was closed with a [id number] 0 Vicryl suture and skin was reapproximated all port sites for subcuticular Monocryl Mastisol Steri-Strips and island dressings were applied. Patient was awakened and extubated in the operating room taken to recovery in stable condition all sponge instrument needle counts listed as correct estimated blood loss 10 mL. DAVID LARIOS MD Mar 16, 2021 08:34
[2021-03-16] MEDS ORDERED: OXYC1TAB15 PO (08:36)
--- NOTE | 2021-03-16 08:39 | DISCH ---
DISCHARGE INSTRUCTIONS Condition on Discharge Condition on Discharge: Stable Activity After Discharge Activity Instructions for Disc: Avoid exertion Other activity instructions: No lifting more than 20 pounds for 2 weeks Diet after Discharge Diet after Discharge: Cardiac Wound Incision Care Other wound/incision instructi: May shower in 24 hours Contacting the DRJacqui after DC Call your doctor for: If your condition worsens Follow-Up Follow up with: Dr. Larios in 2 weeks Treatment/Equipment after DC Adaptive Equipment Issued: None DAVID LARIOS MD Mar 16, 2021 08:39
[2021-03-16] MEDS ORDERED: HYDROcodone/APAP 5/325MG 1 TAB TABLET PO ONE (09:00)
[2021-03-16 09:09] VITALS: BP 168/82
--- NOTE | 2021-03-21 13:15 | PATHOLOGY ---
[facility] Accession Number: [id number] . 01 Material submitted: . gallbladder - GALLBLADDER . 01 Clinical history: . CHRONIC CHOLECYSTITIS LAPAROSCOPIC CHOLECYSTECTOMY . . 02 Diagnosis: Gallbladder, laparoscopic cholecystectomy: - Calcified granular material within lumen of gallbladder fundus. - Chronic cholecystitis. (JPM:marla; 03/21/2021) S 03/21/2021 0858 Local . 02 Comment: There is no evidence of malignancy. (JPM:marla; 03/21/2021) . 02 Electronically signed: . Abel Bailey MD, Pathologist NPI- [id number] . 01 Gross description: . Fixative: Formalin Labeled: Gallbladder Specimen received: Intact gallbladder Dimensions: 8.5 x 3.0 x 2.3 cm Serosa: Congested pink-green Lymph node: Not present Mucosa: Smooth to velvety pink-green, edematous Average wall thickness: 0.2-0.3 cm Calculi: No calculi Abnormalities: White-yellow granular material measuring 2.0 x 1.8 x 0.6 cm compacted at the fundus A1- Rubber Stamp Maker body, fundus, and the cystic duct margin. (BLJ; 03/17/2021) . BLJ/BLJ 03/21/2021 0856 Local . 02 Pathologist provided ICD-10: K81.1 . 02 CPT . 782743 Specimen Comment: A courtesy copy of this report has been sent to [phone], [phone] Specimen Comment: [id number] Specimen Comment: Report sent to / DR JENKINS Performed at: [address], [place], [place] [id number] MD Surya Ryan MD Phone: [phone] Performed at: 02 [facility] [address] [place], [place] [id number] MD Abel Bailey MD Phone: [phone]
== END 2021-03-16 11:00 | disposition home or self-care (01) ==
LOC: SURG 06:32
PROVIDERS: ATTEND Surgery
DX: K80.10 Calculus of gallbladder with chronic cholecystitis without obstruction (principal); I12.9 Hypertensive chronic kidney disease with stage 1 through stage 4 chronic kidney disease, or unspecified chronic kidney disease; N18.9 Chronic kidney disease, unspecified; M19.90 Unspecified osteoarthritis, unspecified site; E78.5 Hyperlipidemia, unspecified; Z79.899 Other long term (current) drug therapy; Z98.890 Other specified postprocedural states; Z72.89 Other problems related to lifestyle
CPT/HCPCS: 47563; 88304; A4930; A6219; J0690; J1100; J2370; J2405; J2704; J2710; J3010; J3490; A4657; Q9967

== ENCOUNTER → 2021-05-10 | Outpatient (CLI) | payer MEDICARE, OTHER ==
[~2021-05-10] MED LIST changes: -ACETAMINOPHEN 500 MG TABLET PO PRN; -HYDROmorphone 2 MG/ML VIAL IVP PRN; -IV RINGERS,LACTATED 1000ML 1,000 ML IV SCH; -MORPHINE SULFATE 2 MG/ML INJ. IVP PRN; +OXYC1TAB15 PO; -PROCHLORPERAZINE 10 MG/2 ML VIAL. IVP PRN; +REGADENOSON 0.4 MG/5 ML DISP.SYRIN. IV ONE; -fentaNYL PF VIAL 100 MCG/2 ML VIAL IVP PRN
--- NOTE | 2021-05-10 15:44 | RAD ---
MR#: [id number] Date of Study: 05/10/2021 Ordering Physician: MIRANDA MARQUEZ, Referring Physician: MARQUITA DARBY Tech: CRUZ Morgan, ARRT (R) (N) APPROVED REPORT Test Type: Pharmacological Stress Nurse/Tech: Jessi Pillai RN Test Indications: Premature Ventricular Contractions Cardiac History: HTN, See EMR. Medications: ASA 81mg, See EMR. Medical History: Multiple Myeloma, Chemo, See EMR. Resting ECG: SR Resting Heart Rate: 45 bpm Resting Blood Pressure: 163/94mmHg Pretest Chest Pain: No chest pain Nurse/Tech Notes Lungs CTA, Heart tones regular. Consent: The procedure was explained to the patient in lay terms. Informed consent was witnessed. Faustino eout was entered into Ep[employer]te. History and Stress Test performed by RT Sandie (R) (N) Pharm. Details Pharmacologic stress testing was performed using 0.4mg per 5ml of regadenoson given intravenously ove r 7-10 seconds. Stress Symptoms No chest pain or symptoms. POST EXERCISE Reason for Termination: Infusion complete Max HR: 88 bpm Max Blood Pressure: 155/77mmHg Blood Pressure response to exercise: Normal blood pressure response during stress. Heart Rate response to exercise: WNL Chest Pain: No. Arrhythmia: Yes. Frequent PVCs & Couplets ST Change: No. INTERPRETATION Stress EKG Conclusion: The resting EKG shows a sinus bradycardia and minimal nonspecific ST segment c hanges. The stress EKG shows no significant changes from baseline. No EKG evidence of stress-induced ischemia. Imaging Protocol IMAGE PROTOCOL: Rest Tc-99m/stress Tc-99m 1 day Rest: Stress: Viability: Radiopharm.Tc99m IsenvrsbpCo37n Sestamibi Xchk1bHe 30.4mCi Img Date 05/10/2021 05/10/2021 Inj-Img Ygzo97hmk. 60min. Rest Admin Site:IV - Right AntecubitalAdministrator:RT Sandie (R)(N) Stress Admin Site: IV - Right AntecubitalAdministrator: Estrella Burrows, RT (R)(N) STRESS DATA End Diast. Vol.135.0mlLVEDV index BSA62.0ml End Syst. Vol.85.0mlLVESV index BSA39.0ml Myocardial Ulko042.0gEject. Fudedbrf08.0% Stress Scores Regional WT2.00Summed WT23.00 Regional WM1.00Summed WM23.00 LV Perfusion The stress images show a distal inferior apical defect. The rest images show a distal inferior apical defect. Nuclear imaging shows a prior infarct in the distal inferior apical region with mild jude-infarct rev ersibility. Wall Motion Left ventricular systolic function is mildly decreased with an ejection fraction of 46% and a distal inferior apical wall motion abnormality. LV Perf. Quant 17 Seg. SSS8.00 17 Seg. SRS4.00 17 Seg. SDS5.00 Stress Defect Extent (% LAD)5.00Rest Defect Extent (% LAD)0.00Rev. Defect Extent (% LAD)2.50 Stress Defect Extent (% LCX) 22.50Rest Defect Extent (% LCX)0.00Rev. Defect Extent (% LCX)5.00 Stress Defect Extent (% RCA)13.30Rest Defect Extent (% RCA)15.60Rev. Defect Extent (% RCA)0.00 Stress Defect Extent (% ROSY)15.20Rest Defect Extent (% ROSY)6.50Rev. Defect Extent (% ROSY)4.10 Conclusion 1. No EKG evidence of stress-induced ischemia. 2. 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 3. Left ventricular systolic function is mildly decreased with an ejection fraction of 46% and a dist al inferior apical wall motion abnormality. 4. Moderate risk Lexiscan nuclear stress test. Signed by : Kedar Kim MD Electronically Approved : 05/10/2021 15:44:17
== END ==
LOC: NM 08:37
PROVIDERS: ATTEND Internal Medicine Cardiovascular Disease
DX: I49.3 Ventricular premature depolarization (principal)
CPT/HCPCS: 78452; 93017; A9500; J2785

== ENCOUNTER 2021-06-17 16:43 | Emergency (ER) | payer MEDICARE, OTHER ==
[~2021-06-17] VITALS: Ht 182.9 cm; Wt 89.0 kg
[~2021-06-17 16:43] MED LIST changes: -REGADENOSON 0.4 MG/5 ML DISP.SYRIN. IV ONE
[2021-06-17 16:55] VITALS: BP 157/79
--- NOTE | 2021-06-17 17:16 | PHYS DOC ---
Past Medical History Past Medical History: Cancer (multiple myeloma), Other Additional Past Medical Histor: multiple myeloma (HATTIEROBERT MARKETING PRODUCTION COORDINATOR) Past Surgical History: No Surgical History Additional Past Surgical Histo: KIDNEY CA (JIMENEZJORGE ALeoraROBERT Siddiqui MARKETING PRODUCTION COORDINATOR) Smoking Status: Never Smoker Alcohol Use: Rarely Drug Use: None (ROBERT KUHN MARKETING PRODUCTION COORDINATOR) General Adult EDM: Chief Complaint: DIARRHEA HPI: HPI: Patient is a 65 year old female with a history of multiple myeloma currently on Revlimid who presents to the ED today complaining of diarrhea for 4 days. Patient denies any melena. Denies any nausea or vomiting. He states occasionally he has abdominal pain but currently has no pain. He states his neighbor who is a retired nurse told him to come to the ED and get antibiotics. He states he does not want any labs or imaging. He states he is tired of people sticking him. (ROBERT KUHN MARKETING PRODUCTION COORDINATOR) Review of Systems: Review of Systems: Constitutional: Denies fever or chills. [] Eyes: Denies change in visual acuity. [] HENT: Denies nasal congestion or sore throat. [] Respiratory: Denies cough or shortness of breath. [] Cardiovascular: Denies chest pain or edema. [] GI: Reports diarrhea for 4 days. Denies abdominal pain, nausea, vomiting, bloody stools : Denies dysuria. [] Musculoskeletal: Denies back pain or joint pain. [] Integument: Denies rash. [] Neurologic: Denies headache, focal weakness or sensory changes. [] Psychiatric: Denies depression or anxiety. [] (ROBERT KUHN MARKETING PRODUCTION COORDINATOR) Heart Score: C/O Chest Pain: N/A Risk Factors: Risk Factors: DM, Current or recent (<one month) smoker, HTN, HLP, family history of CAD, obesity. Risk Scores: Score 0 - 3: 2.5% MACE over next 6 weeks - Discharge Home Score 4 - 6: 20.3% MACE over next 6 weeks - Admit for Clinical Observation Score 7 - 10: 72.7% MACE over next 6 weeks - Early Invasive Strategies (ROBERT KUHN MARKETING PRODUCTION COORDINATOR) Allergies: Allergies: Allergies Coded Allergies Type Severity Reaction Last Updated Verified No Known Drug Allergies 03/16/21 No (ROBERT KUHN MARKETING PRODUCTION COORDINATOR) Physical Exam: PE: Constitutional: Well developed, well nourished, no acute distress, non-toxic ap pearance. [] HENT: Normocephalic, atraumatic, bilateral external ears normal, oropharynx moist, no oral exudates, nose normal. [] Eyes: PERRLA, EOMI, conjunctiva normal, no discharge. [] Neck: Normal range of motion, no tenderness, supple, no stridor. [] Cardiovascular:Heart rate regular rhythm, no murmur [] Lungs & Thorax: Bilateral breath sounds clear to auscultation [] Abdomen: Bowel sounds normal, soft, no tenderness, no masses, no pulsatile masses. [] Skin: Warm, dry, no erythema, no rash. [] Back: No tenderness, no CVA tenderness. [] Extremities: No tenderness, no cyanosis, no clubbing, ROM intact, no edema. [] Neurologic: Alert and oriented X 3, normal motor function, normal sensory function, no focal deficits noted. [] Psychologic: Affect normal, judgement normal, mood normal. [] (ROBERT KUHN APRN) EKG: EKG: [] (ROBERT KUHN APRN) Radiology/Procedures: Radiology/Procedures: [] (ROBERT KUHN APRN) Course & Med Decision Making: Course & Med Decision Making Pertinent Labs and Imaging studies reviewed. (See chart for details) This is a 65-year-old male patient presented to the ED today complaining of diarrhea for 4 days. Patient initially was refusing labs or IV fluids requesting antibiotics. Informed patient we do not give antibiotics without a source of bacteria infection because it will make diarrhea worse. Patient states he is fully vaccinated against Covid including getting a booster 3 weeks ago. He states he was also tested for COVID-19 2 or 3 weeks ago and the test was negative. CBC with no acute findings, CMP with creatinine of 2.0, BUN is normal patient has a history of kidney disease. Last creatinine was 1.5 in December 2020. Patient was given a liter of IV fluids. Patient was offered admission which he refused. He states he can hydrate himself at home. He was discharged to follow-up with his own doctor. (ROBERT KUHN APRN) Dragon Disclaimer: Dragon Disclaimer: This electronic medical record was generated, in whole or in part, using a voice recognition dictation system. (ROBERT KUHN MARKETING PRODUCTION COORDINATOR) Departure Departure Impression: Primary Impression: Diarrhea Qualified Codes: R19.7 - Diarrhea, unspecified Additional Impression: Acute on chronic renal insufficiency Disposition: HOME / SELF CARE / HOMELESS Condition: STABLE Referrals: GINNA JENKINS MD (PCP) Follow-up next week Patient Instructions: Diarrhea, [id number] Additional Instructions: You were evaluated in the emergency room and noted to be dehydrated. We encourage you to push fluids. Please follow-up with your own Primary Care Doctor Next Week. Maintain Good Hand Hygiene, Come Back to the ED at Any Point Symptoms Worsen Attending Signature Attending Signature I have reviewed the PA/PROJECT DEVELOPER's note and plan of care. I was available for consultation as needed during the patient's visit in the emergency department. I agree with the clinical impression, plan, and disposition. (GINNA POPE DO) ROBERT KUHN APRN Jun 17, 2021 17:16 GINNA POPE DO Jun 18, 2021 07:14
[2021-06-17 17:19] LABS: BASO % 1 % (0-3); EOS # 0.3 x10^3/uL (0.0-0.7); EOS % 6 % (0-3); HEMOGLOBIN 17.3 g/dL (13.0-17.5); LYMPH # 0.7 x10^3/uL (1.0-4.8); LYMPH % 14 % (24-48); MEAN CORPUSCULAR HEMOGLOBIN 33 pg (25-35); MEAN CORPUSCULAR HGB CONC 34 g/dL (31-37); MEAN CORPUSCULAR VOLUME 98 fL (79-100); MONO # 0.8 x10^3/uL (0.0-1.1); MONO % 17 % (0-9); NEUT # 3.1 x10^3/uL (1.8-7.7); NEUT % 62 % (31-73); PLATELET COUNT 165 x10^3/uL (140-400); RED BLOOD COUNT 5.19 x10^6/uL (4.30-5.70); RED CELL DISTRIBUTION WIDTH 15.4 % (11.5-14.5); WHITE BLOOD COUNT 4.9 x10^3/uL (4.0-11.0)
[2021-06-17 17:25] LABS: CALCIUM 9.1 mg/dL (8.5-10.1); GFR 33.5; POTASSIUM 4.1 mmol/L (3.5-5.1)
[2021-06-17 17:30] LABS: TOTAL BILIRUBIN 0.6 mg/dL (0.2-1.0)
[2021-06-17] MEDS ORDERED: IV NORMAL SALINE 1000ML BAG 1,000 ML IV ONE (18:00)
== END 2021-06-17 19:13 | disposition home or self-care (01) ==
LOC: ER 16:43
DX: N18.9 Chronic kidney disease, unspecified (principal); R19.7 Diarrhea, unspecified
CPT/HCPCS: 36415; 80053; 83690; 85025; 96360; 99283; J7030